=== PATIENT | female | born 2000 | race Caucasian/White ===

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

== ENCOUNTER 2022-02-05 09:03 | Emergency (ER) | payer OTHER, SELFPAY ==
[2022-02-05 09:30] VITALS: BP 129/84; PULSE 107; RESP 19; TEMP 36.9; O2SAT 99; BMI 31.6
[2022-02-05 09:52] LABS: UTC Influenza A Antigen Negative (Negative)
[2022-02-05 09:53] LABS: UTC Influenza B Antigen Negative (Negative)
--- NOTE | 2022-02-05 10:09 | HMH.EDUTC ---
[facility] [place] Clinical Impression: Viral syndrome Disposition: Home, Self-Care Condition on Discharge: Good Instructions: How to Avoid a Cold or Flu, Nausea and Vomiting-Adult, Ondansetron Additional Instructions: Drink extra fluids with and between meals. If you have difficulty drinking, try very small amounts of water or suck on ice chips. ? Avoid fruit juices, as these do not replace minerals and can actually increase diarrhea. ? Children and adults can use sports drinks to replenish electrolytes. Younger children and infants should use products formulated for children, like oral rehydration solutions. ? Eat food in small amounts and let your stomach recover. ? Get lots of rest. You may feel tired or weak. ? No greasy or fried foods for the next 24-48 hours BRAT diet Bananas Rice Apples and [place] ? Make sure to drink plenty of liquids ? Return if needed ? Straight to ER if any life threatening symptoms ? Zofran as prescribed ? Follow up with family doctor in the next 48-72 hours if no improvement or any worsening of symptoms You may check your COVID test and Upper Respiratory Panel results on the [facility] health portal if you have trouble logging on you may call for assistance Prescriptions: Ondansetron [Zofran 4mg ODT] 4 mg PO TIDP PRN #10 tab PRN Reason: Nausea Transmission Status: Pending to [facility] Referrals: Scar Gonzalez MD [Primary Care Provider] - As needed Forms: Work/School Release Time of Disposition: 10:18 Medical Decision Making - Cade Inquiry Pt receiving controlled substance: No Cade was queried for this patient: No Vital Signs: 02/05/22 09:30 Temperature 98.4 F Temperature Source Oral Pulse Rate [Left Brachial] 107 H Respiratory Rate 19 Blood Pressure [Left Arm] 129/84 Blood Pressure Mean [Left Arm] 99 Blood Pressure Source [Left Arm] Automatic Cuff Blood Pressure Position [Left Arm] Sitting 02 Sat by Pulse Oximetry 99 Oxygen Delivery Method Room Air - Lab Data Lab results reviewed: Yes: I reviewed the patient's lab results. Lab Results 02/05/22 09:42: Influenza Type A Ag Negative, Influenza Type B Ag Negative Orders (Tests/Meds): ORDERS Category Date Time Status Full Resp Panel w/COVID ([facility]) Routine Lab 02/05/22 10:14 Ordered [facility] [place] HPI - General Stated complaint: vomiting, body aches/chills, head congestion Time Seen by Provider: 02/05/22 10:10 Mode of Arrival: Ambulatory Source of Information: Patient Limitations: No Limitations Description of Symptoms (Recalled from Triage Doc. by RN): PATIENT C/O BODY ACHES, FEVER, CHILLS, VOMITING AND DIARRHEA SINCE YESTERDAY MORNING HEENT Symptoms (Recalled from RN notes): No Resp Symptoms (Recalled from RN notes): No Skin Symptoms (Recalled from RN notes): No MS Symptoms (Recalled from RN notes): No Functional Status (Recalled from RN notes): WNL - History of Present Illness Provider Complaint: Patient states that she started feeling bad yesterday with N/V/D body ache, and chills State that she slept most of the day last night and today she is still having nausea and feeling achy all over like she may have the flu - Related Data Previous Rx's Medication Instructions Recorded Ondansetron [Zofran 4mg ODT] 4 mg PO TIDP PRN #10 tab 02/05/22 Allergies Allergy/AdvReac Type Severity Reaction Status Date / Time No Known Allergies Allergy Verified 07/27/21 15:17 - Worker's Comp Is this a Worker's Comp case?: No [facility] History - Hepatitis A Screen Drug use history?: No High risk sexual behaviors?: No History of sexually transmitted infection?: No Currently employed?: No Childcare worker?: No Do you have indoor plumbing?: Yes Do you have electricity?: Yes Attestation statement:: This patient has been screened for Hepatitis A risk factors. I have reviewed the patient's past medical history: Yes 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: Denies:: Cancer, Diabetes Mellitus Type 1, Diabetes Mellitus Type
[2022-02-05 10:20] VITALS: BP 129/84; PULSE 107; RESP 19; TEMP 36.9; O2SAT 99
[2022-02-05 10:28] LABS: Adenovirus,PCR Not Detected (NotDetected); Bordetella Pertussis Not Detected (NotDetected); Chlamydophila Pneumoniae, PCR Not Detected (NotDetected); Coronavirus 19, PCR Not Detected (NotDetected); Coronavirus 229E Not Detected (NotDetected); Coronavirus NL63 Not Detected (NotDetected); Coronavirus OC43 Not Detected (NotDetected); Coronovirus HKU1,PCR Not Detected (NotDetected); Human Metapneumovirus Not Detected (NotDetected); Influenza A, PCR Not Detected (NotDetected); Influenza AH1, 2009 Not Detected (NotDetected); Influenza AH1, PCR Not Detected (NotDetected); Influenza AH3,PCR Not Detected (NotDetected); Influenza B, PCR Not Detected (NotDetected); Mycoplasma Pneumoniae, PCR Not Detected (NotDetected); Parainfluenza 1, PCR Not Detected (NotDetected); Parainfluenza 2, PCR Not Detected (NotDetected); Parainfluenza 3, PCR Not Detected (NotDetected); Parainfluenza 4, PCR Not Detected (NotDetected); Respiratory Syncytial Virus Not Detected (NotDetected); Rhinovirus/Enterovirus Not Detected (NotDetected)
== END 2022-02-05 10:24 | disposition home or self-care (01) ==
PROVIDERS: Emergency Provider Nurse Practitioner; PCP Family Medicine
DX: B34.9 Viral infection, unspecified (principal); Z20.822 Contact with and (suspected) exposure to COVID-19; F17.210 Nicotine dependence, cigarettes, uncomplicated; Z82.49 Family history of ischemic heart disease and other diseases of the circulatory system
CPT/HCPCS: 87581; 87632; 87798; 87804; 99213; C9803; G0463; U0003; U0005

== ENCOUNTER → 2022-07-10 12:14 | Outpatient (CLI) | payer OTHER, SELFPAY ==
--- NOTE | 2022-07-10 12:18 | XR_ITS ---
FINAL REPORT CLINICAL HISTORY: RT KNEE PATELLAR TENDINITIS-- no injury FINDINGS: RIGHT KNEE Three views of the right knee reveal no evidence of fracture or dislocation. The bony alignment is normal. The joint spaces are preserved. There is no evidence of joint effusion. No localized soft tissue abnormality is identified. IMPRESSION: No acute abnormality identified. Reviewed, Interpreted and Dictated by Juan Britton III, MD Transcribed by Lizabeth Marie Authenticated and [facility]
--- NOTE | 2022-07-10 12:18 | XR_ITS ---
FINAL REPORT CLINICAL HISTORY: LT KNEE PATELLAR TENDINITES -- no injury FINDINGS: LEFT KNEE Three views of the left knee reveal no evidence of fracture or dislocation. The bony alignment is normal. The joint spaces are preserved. There is no evidence of joint effusion. No localized soft tissue abnormality is seen. IMPRESSION: No acute abnormality identified. Reviewed, Interpreted and Dictated by Juan Britton III, MD Transcribed by Lizabeth Marie Authenticated and [facility]
== END ==
PROVIDERS: PCP Family Medicine; Visit Provider Physician Assistant
DX: M76.52 Patellar tendinitis, left knee (principal); M76.51 Patellar tendinitis, right knee
CPT/HCPCS: 73562

== ENCOUNTER 2022-07-26 16:30 | Outpatient (RCR) | payer OTHER, SELFPAY ==
--- NOTE | 2022-06-05 13:56 | HMH.PTOPEV ---
PT Outpatient Evaluation Rehab PT Outpatient Evaluation Start: 06/05/22 13:27 Freq: Status: Active Protocol: Document 06/05/22 13:28 LAYNE (Rec: 06/05/22 13:56 LAYNE [id number]) Electronically Signed By Bakari Kwan, PT 06/05/22 13:28 Outpatient Therapy Subjective History Subjective History Pt reports h/o chronic right knee pain for ~6 weeks. Pt reports anterior right knee pain with insidious onset, reports intermittent episodes of right knee buckling, as well as right patella 'feeling like it gets stuck, and then I've gotta unlock it'. Chief Complaint Pain,Stiff,Clicks,Swelling, Catches/Locks,Gives out/ Unstable Symptom Type Ache,Sharp,Dull Symptoms Relieved By Rest/Positioning Symptoms Aggravated By Standing,Physical Activity, Walking Prior Functional Limitations Standing,Squatting,Walking, Stairs Current Functional Limitations Standing,Squatting,Walking, Stairs Symptom Description Constant but Variable Level of pain today (0-10) 3 Pain scale - at its best (0-10) 3 Pain scale - at its worst (0-10) 7 Hip/Knee Eval Gait Observation General Gait Pattern Observation Antalgic Gait Palpation Tenderness right Knee Palpation Finding Tenderness Knee Palpation Overall Comment inferior pole patella 1/4, medial jt line 2/4, popiteal space 2/4 MMT Hip Flexion Strength Grade 4- Good- Hip Abduction Strength Grade 4- Good- Hip Adduction Strength Grade 4 Good Hip Extension Strength Grade 4 Good Hip External Rotation Strength Grade 4 Good Hip Internal Rotation Strength Grade 4- Good- Knee Extension Strength Grade 5 Normal Knee Flexion Strength Grade 4 Good ROM Knee Flexion Active Range of Motion ( 0-134 degrees) Effusion joint effusion knee exam standard right Mid - Patellar Circumerential Measure ( 40.5 cm) Special Tests Knee Anterior Kristie Test Negative Right Knee Valgus Stress Test Negative Right Knee Varus Stress Test Negative Right Knee Caro Test Negative Right Patellar Grind Test Positive Right Patellar Compression Test Positive Right Patella Houghston's Plica Test Negative Right Outpatient Therapy Assessment Impairments Problems/Impairmments Palpation Tenderness,Impaired
== END 2022-07-26 16:35 | disposition home or self-care (01) ==
LOC: PT 16:30
PROVIDERS: PCP Family Medicine; Visit Provider Physician Assistant
DX: M76.51 Patellar tendinitis, right knee (principal)
CPT/HCPCS: 97010; 97014; 97035; 97110; 97112; 97140; 97163; 97164; 97530; G0283

== ENCOUNTER → 2022-10-05 13:55 | Outpatient (CLI) | payer OTHER, SELFPAY | PROVIDERS: PCP Family Medicine; Visit Provider Physician Assistant | DX: R00.2 Palpitations (principal) | CPT/HCPCS: 93225; 93226 ==

== ENCOUNTER 2023-02-21 11:47 | Emergency (ER) | payer OTHER, SELFPAY ==
[2023-02-21 12:00] VITALS: BP 127/76; PULSE 100; RESP 20; TEMP 37.2; O2SAT 96; BMI 30.7
--- NOTE | 2023-02-21 12:11 | EXP.UTC ---
Discharge Plan Disposition Patient Disposition: Home, Self-Care Condition: Good Prescriptions Prescriptions: New ciprofloxacin HCl 0.3 % drops See Rx Instructions .ROUTE .COMPLEX Qty: 5 0RF Rx Instructions: put 1 drp in left eye every 2hr x2days; then 4 times/day x5days cephalexin 500 mg capsule 500 mg PO QID Qty: 40 0RF No Action venlafaxine [Effexor XR] 150 mg capsule,extended release 24hr 150 mg PO DAILY Vraylar 1.5 mg capsule 1.5 mg PO DAILY Referrals Follow up/Referrals: Scar Gonzalez MD [Primary Care Provider] - See instructions Activity Restrictions/Add. Instructions Additional Instructions/Restrictions: Use the eye drops as directed. Strict hand washing in the house hold, because conjunctivitis is very contagious. Follow up with your regular doctor. GO TO THE ER FOR ANY WORSENING SYMPTOMS OR CONCERNS Clinical Impressions Clinical Impression: Conjunctivitis of left eye, Hordeolum externum of left upper eyelid Stand Alone Forms Stand Alone Forms: Work/School Release Instructions Patient Instructions: How to Instill Eye Drops, Conjunctivitis, DI for Conjunctivitis, DI for Hordeolum Discharge ED Provider: Sean Barker [facility] General Stated complaint: Left eye redness and swollen Mode of Arrival: Ambulatory Source of Information: Patient Limitations: No Limitations Time Seen by Provider: 02/21/23 12:11 Description of Symptoms (Recalled from Triage Doc. by RN): swollen left eye and left side of face HEENT Symptoms (Recalled from RN notes): Yes Resp Symptoms (Recalled from RN notes): No Skin Symptoms (Recalled from RN notes): No MS Symptoms (Recalled from RN notes): No Functional Status (Recalled from RN notes): n/a History of Present Illness Provider Complaint: She states that she has had swelling around her left eye and mild puffiness of the area above that eye for the past 2 days. She denies any injury of foreign body. Related Data Home Medications Medication Instructions Recorded Confirmed cariprazine 1.5 mg capsule 1.5 mg PO DAILY anxiety 02/21/23 02/21/23 (Vraylar) venlafaxine 150 mg 150 mg PO DAILY Anxiety 02/21/23 02/21/23 capsule,extended release 24 hr (Effexor XR) Previous Rx's Medication Instructions Recorded cephalexin 500 mg capsule 500 mg PO QID #40 caps 02/21/23 ciprofloxacin HCl 0.3 % eye drops See Rx Instructions ophthalmic 02/21/23 (eye) .COMPLEX #5 mL Allergies Allergy/AdvReac Type Severity Reaction Status Date / Time No Known Allergies Allergy Verified 02/21/23 12:05 Worker's Comp Is this a Worker's Comp case?: No PFSH PFS Disclaimer: The information contained in this section may have been updated after the patient was seen, as this information can be updated by other users. 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 Generalized anxiety disorder Major depressive disorder Surgical History History of tonsillectomy Family History Mother FHx: mental illness Social History Smoking Status: Current every day smoker tobacco type: e-cigarettes quit status: considering quitting second hand exposure: No alcohol intake: never substance use type: denies use current occupational status: employed and other Travel in the last 8 weeks: None adopted: No caregiver/support person: No foster care: No household members: family housing: house marital status: single number of children: 0 education level: college 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
[2023-02-21 12:33] VITALS: BP 127/76; PULSE 100; RESP 20; TEMP 37.2; O2SAT 96
== END 2023-02-21 12:33 | disposition home or self-care (01) ==
PROVIDERS: Emergency Provider Nurse Practitioner Family; PCP Family Medicine
DX: H10.9 Unspecified conjunctivitis (principal); H00.014 Hordeolum externum left upper eyelid; F17.290 Nicotine dependence, other tobacco product, uncomplicated
CPT/HCPCS: 99212; 99214; G0463

== ENCOUNTER 2023-02-24 10:35 | Emergency (ER) | payer OTHER, SELFPAY ==
[2023-02-24 10:40] VITALS: BP 131/78; PULSE 101; RESP 19; TEMP 37.3; O2SAT 99; BMI 27.7
--- NOTE | 2023-02-24 10:57 | EXP.UTC ---
Discharge Plan Disposition Patient Disposition: Home, Self-Care Condition: Good Prescriptions Prescriptions: New erythromycin 5 mg/gram (0.5 %) ointment 0.5 inch ophthalmic (eye) QID 7 Days Qty: 7 0RF Rx Instructions: apply 1cm ribbon to left eye as directed No Action venlafaxine [Effexor XR] 150 mg capsule,extended release 24hr 150 mg PO DAILY Vraylar 1.5 mg capsule 1.5 mg PO DAILY Referrals Follow up/Referrals: Scar Gonzalez MD [Primary Care Provider] - See instructions Activity Restrictions/Add. Instructions Additional Instructions/Restrictions: Stop using the Cipro drops and start the erythromycin ointment for your left eye Follow up with your Family Doctor or Eye Doctor if no improvement or any worsening of symptom Return if needed Straight to ER if any life threatening symptoms Straight to ER if any life threatening symptoms Continue oral antibiotics as prescribed Warm compresses to eye may help with pain and discomfort Clinical Impressions Clinical Impression: Conjunctivitis of left eye Instructions Patient Instructions: Conjunctivitis, DI for Conjunctivitis Discharge ED Provider: Flor Lopez [facility] General Stated complaint: Lt eye swollen, irritated Mode of Arrival: Ambulatory Source of Information: Patient Limitations: No Limitations Time Seen by Provider: 02/24/23 10:57 Description of Symptoms (Recalled from Triage Doc. by RN): PATIENT C/O SWELLING TO LEFT EYE, LEFT EAR, AND LEFT SIDE OF FACE X 1 WEEK HEENT Symptoms (Recalled from RN notes): Yes Resp Symptoms (Recalled from RN notes): No Skin Symptoms (Recalled from RN notes): No MS Symptoms (Recalled from RN notes): No Functional Status (Recalled from RN notes): WNL History of Present Illness Provider Complaint: Patient states that she was recently seen for swelling in the left side of her face around her cheek area to above her eye but she has been on antibiotics and that is doing better States that she is still having pain in her left ear and still having redness and drainage from her left eye and thinks she may have a stye there too States that the drops she was given for eye she doesnt feel like it is working Related Data Home Medications Medication Instructions Recorded Confirmed cariprazine 1.5 mg capsule 1.5 mg PO DAILY anxiety 02/21/23 02/24/23 (Vraylar) venlafaxine 150 mg 150 mg PO DAILY Anxiety 02/21/23 02/24/23 capsule,extended release 24 hr (Effexor XR) Previous Rx's Medication Instructions Recorded erythromycin 5 mg/gram (0.5 %) eye 0.5 inch ophthalmic (eye) QID 7 02/24/23 ointment days #7 grams Allergies Allergy/AdvReac Type Severity Reaction Status Date / Time No Known Allergies Allergy Verified 02/21/23 12:05 Worker's Comp Is this a Worker's Comp case?: No [facility] Disclaimer: The information contained in this section may have been updated after the patient was seen, as this information can be updated by other users. 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 Generalized anxiety disorder Major depressive disorder Surgical History History of tonsillectomy Family History Mother FHx: mental illness Social History Smoking Status: Current every day smoker tobacco type: e-cigarettes quit status: considering quitting second hand exposure: No alcohol intake: never substance use type: denies use current occupational status: employed and other Travel in the last 8 weeks: None adopted: No caregiver/support person: No foster care: No household members: family housing: house marital status: single number of children: 0 education level: college 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
[2023-02-24 11:10] VITALS: BP 131/78; PULSE 101; RESP 19; TEMP 37.3; O2SAT 99
== END 2023-02-24 11:16 | disposition home or self-care (01) ==
PROVIDERS: Emergency Provider Nurse Practitioner; PCP Family Medicine
DX: H10.32 Unspecified acute conjunctivitis, left eye (principal); H92.02 Otalgia, left ear; F17.290 Nicotine dependence, other tobacco product, uncomplicated
CPT/HCPCS: 99212; 99214; G0463

== ENCOUNTER 2023-03-06 11:06 | Emergency (ER) | payer OTHER, SELFPAY ==
[2023-03-06 11:06] VITALS: BP 149/88; PULSE 96; RESP 18; TEMP 36.9; O2SAT 100; BMI 30.7
--- NOTE | 2023-03-06 11:21 | EXP.UTC ---
Discharge Plan Disposition Patient Disposition: Home, Self-Care Condition: Good Prescriptions Prescriptions: New phenazopyridine [Pyridium] 200 mg tablet 200 mg PO Q8H 2 Days Qty: 6 0RF sulfamethoxazole-trimethoprim [Bactrim DS] 800-160 mg Tablet 1 tab PO BID Qty: 14 0RF No Action venlafaxine [Effexor XR] 150 mg capsule,extended release 24hr 150 mg PO DAILY Vraylar 1.5 mg capsule 1.5 mg PO DAILY medroxyprogesterone 150 mg/mL suspension 150 mg IM MONTHLY Referrals Follow up/Referrals: Scar Gonzalez MD [Primary Care Provider] - See instructions Activity Restrictions/Add. Instructions Additional Instructions/Restrictions: Drink plenty of fluids. Take tylenol or ibuprofen for pain or fever. Take the medications as directed. Follow up with your regular doctor. GO TO THE ER FOR ANY WORSENING SYMPTOMS The pyridium will make your urine turn orange, this is an expected side effect. It will stain your clothes if it comes into contact with them. We will culture the urine. That will tell what bacteria is causing your infection and which antibiotics will treat it best. Sometimes the first antibiotic we prescribe turns out to not work against different bacteria. So, make sure you follow up within 3 days if you are not getting better. Clinical Impressions Clinical Impression: UTI (urinary tract infection) Stand Alone Forms Stand Alone Forms: Work/School Release Discharge ED Provider: Sean Barker [facility] General Stated complaint: Possible UTI Mode of Arrival: Ambulatory Source of Information: Patient Limitations: No Limitations Time Seen by Provider: 03/06/23 11:20 Description of Symptoms (Recalled from Triage Doc. by RN): UTI symptoms. Burning when urinating HEENT Symptoms (Recalled from RN notes): No Resp Symptoms (Recalled from RN notes): No Skin Symptoms (Recalled from RN notes): No MS Symptoms (Recalled from RN notes): Yes Functional Status (Recalled from RN notes): n/a Related Data Home Medications Medication Instructions Recorded Confirmed cariprazine 1.5 mg capsule 1.5 mg PO DAILY anxiety 02/21/23 03/06/23 (Vraylar) venlafaxine 150 mg 150 mg PO DAILY Anxiety 02/21/23 03/06/23 capsule,extended release 24 hr (Effexor XR) medroxyprogesterone 150 mg/mL 150 mg IM MONTHLY control 03/06/23 03/06/23 intramuscular suspension Previous Rx's Medication Instructions Recorded phenazopyridine 200 mg tablet 200 mg PO Q8H 2 days #6 tabs 03/06/23 (Pyridium) sulfamethoxazole 800 1 tab PO BID #14 tabs 03/06/23 mg-trimethoprim 160 mg tablet (Bactrim DS) Allergies Allergy/AdvReac Type Severity Reaction Status Date / Time No Known Allergies Allergy Verified 03/06/23 11:16 Worker's Comp Is this a Worker's Comp case?: No [facility] Disclaimer: The information contained in this section may have been updated after the patient was seen, as this information can be updated by other users. 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 Generalized anxiety disorder Major depressive disorder Surgical History History of tonsillectomy Family History Mother FHx: mental illness Social History Smoking Status: Current every day smoker tobacco type: e-cigarettes quit status: considering quitting second hand exposure: No alcohol intake: never substance use type: denies use current occupational status: employed and other Travel in the last 8 weeks: None adopted: No caregiver/support person: No foster care: No household members: family housing: house marital status: single number of children: 0 education level: college 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[employer]; in [employer]
[2023-03-06 11:27] LABS: Apearance,Urine Clear (Clear); Color,Urine Yellow (Yellow)
[2023-03-06 11:28] LABS: Bilirubin,Urine Negative (Negative); Blood, Urine 2+ (Negative); Glucose,Urine (UA) Negative (Negative); Ketones,Urine Negative (Negative); PH,Urine 6.5 (5.0-8.5); Protein,Urine Trace (Negative); UTC Leukocyte Esterase,Urine 1+ (Negative); UTC Nitrate,Urine Negative (Negative); Urobilinogen,Urine 0.2 EU/dl (0.2)
[2023-03-06 11:54] VITALS: BP 149/88; PULSE 96; RESP 18; TEMP 36.9; O2SAT 100
== END 2023-03-06 11:54 | disposition home or self-care (01) ==
PROVIDERS: Emergency Provider Nurse Practitioner Family; PCP Family Medicine
DX: N39.0 Urinary tract infection, site not specified (principal); F17.290 Nicotine dependence, other tobacco product, uncomplicated
CPT/HCPCS: 81003; 87086; 99212; 99214; G0463

== ENCOUNTER 2023-03-18 15:48 | Emergency (ER) | payer OTHER, SELFPAY ==
[2023-03-18 16:25] VITALS: BP 145/87; PULSE 101; RESP 20; TEMP 36.9; O2SAT 98; BMI 31.7
[2023-03-18 16:38] LABS: UTC Pregnancy Test, Urine Negative (Negative)
--- NOTE | 2023-03-18 16:42 | EXP.UTC ---
Discharge Plan Disposition Patient Disposition: Home, Self-Care Condition: Good Prescriptions Prescriptions: No Action venlafaxine [Effexor XR] 150 mg capsule,extended release 24hr 150 mg PO DAILY Vraylar 1.5 mg capsule 1.5 mg PO DAILY medroxyprogesterone 150 mg/mL suspension 150 mg IM MONTHLY phenazopyridine [Pyridium] 200 mg tablet 200 mg PO Q8H 2 Days Qty: 6 0RF sulfamethoxazole-trimethoprim [Bactrim DS] 800-160 mg Tablet 1 tab PO BID Qty: 14 0RF Referrals Follow up/Referrals: Scar Gonzalez MD [Primary Care Provider] - See instructions Activity Restrictions/Add. Instructions Additional Instructions/Restrictions: Take another home test in 2 weeks to make sure that it is still showing negative Follow up with your Family Doctor or OBGYN if needed Straight to ER if any life threatening symptoms Clinical Impressions Clinical Impression: Encounter for test with result negative Discharge ED Provider: Flor Lopez [facility] General Stated complaint: wants Preg Test Mode of Arrival: Ambulatory Source of Information: Patient Limitations: No Limitations Time Seen by Provider: 03/18/23 16:43 Description of Symptoms (Recalled from Triage Doc. by RN): PATIENT REQUESTING TEST. SHE REPORTS A FAINT LINE ON A HOME TEST HEENT Symptoms (Recalled from RN notes): No Resp Symptoms (Recalled from RN notes): No Skin Symptoms (Recalled from RN notes): No MS Symptoms (Recalled from RN notes): No Functional Status (Recalled from RN notes): WNL History of Present Illness Provider Complaint: Patient states that she wanted to get a test States that she is on the depo shot but she took a home test and thinks she may have seen a faint line so she took 2 more and they was negative but she wanted to come in and get one here to see what it showed Related Data Home Medications Medication Instructions Recorded Confirmed cariprazine 1.5 mg capsule 1.5 mg PO DAILY anxiety 02/21/23 03/06/23 (Vraylar) venlafaxine 150 mg 150 mg PO DAILY Anxiety 02/21/23 03/06/23 capsule,extended release 24 hr (Effexor XR) medroxyprogesterone 150 mg/mL 150 mg IM MONTHLY control 03/06/23 03/06/23 intramuscular suspension Previous Rx's Medication Instructions Recorded phenazopyridine 200 mg tablet 200 mg PO Q8H 2 days #6 tabs 03/06/23 (Pyridium) sulfamethoxazole 800 1 tab PO BID #14 tabs 03/06/23 mg-trimethoprim 160 mg tablet (Bactrim DS) Allergies Allergy/AdvReac Type Severity Reaction Status Date / Time No Known Allergies Allergy Verified 03/06/23 11:16 Worker's Comp Is this a Worker's Comp case?: No [facility] PFS Disclaimer: The information contained in this section may have been updated after the patient was seen, as this information can be updated by other users. 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 Generalized anxiety disorder Major depressive disorder Surgical History History of tonsillectomy Family History Mother FHx: mental illness Social History Smoking Status: Current every day smoker tobacco type: e-cigarettes quit status: considering quitting second hand exposure: No alcohol intake: never substance use type: denies use current occupational status: employed and other Travel in the last 8 weeks: None adopted: No caregiver/support person: No foster care: No household members: family housing: house marital status: single number of children: 0 education level: college 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
[2023-03-18 16:48] VITALS: BP 145/87; PULSE 101; RESP 20; TEMP 36.9; O2SAT 98
== END 2023-03-18 16:50 | disposition home or self-care (01) ==
PROVIDERS: Emergency Provider Nurse Practitioner; PCP Family Medicine
DX: Z32.02 Encounter for pregnancy test, result negative (principal); F17.290 Nicotine dependence, other tobacco product, uncomplicated
CPT/HCPCS: 81025; 99212; G0463

== ENCOUNTER 2023-04-15 21:20 | Emergency (ER) | payer OTHER, SELFPAY ==
[2023-04-15] VITALS (7 sets, daily range): BP systolic 122–164; BP diastolic 74–100; PULSE 108–127; RESP 18–32; TEMP 36.9; O2SAT 96–100; BMI 35.3; BMI 35.5
--- NOTE | 2023-04-15 21:20 | ECG_ITS ---
APPROVED REPORT Exam: Resting ECG HR:126 bpm ECG Measurements Heart Rate 126 AXES KS 152 P 55 QRSd 112 QRS 53 QT 298 T 20 QTc 373 Conclusion SINUS TACHYCARDIA O/w NORMAL RHYTHM ECG UNCONFIRMED REPORT Electronically signed by : Bert Tavera MD 04/18/2023 09:31:43
--- NOTE | 2023-04-15 21:22 | XR_ITS ---
PROCEDURE INFORMATION: Exam: XR Chest Exam date and time: 04/15/2023 9:41 PM Age: 22 years old Clinical indication: Sternal or substernal pain; Additional info: Chest pain, dyspnea TECHNIQUE: Imaging protocol: Radiologic exam of the chest. Views: 2 views. COMPARISON: No relevant prior studies available. FINDINGS: Lungs: Unremarkable. No consolidation. Pleural spaces: Unremarkable. No pleural effusion. No pneumothorax. Heart/Mediastinum: Unremarkable. No cardiomegaly. Bones/joints: Unremarkable. IMPRESSION: No acute findings.
[2023-04-15 21:38] LABS: Basophils # 0.1 K/mm3 (0-0.2); Basophils % 0.5 % (0.1-2.0); Eosinophils # 0.2 K/mm3 (0.0-0.4); Eosinophils % 1.6 % (0.1-12.0); Hematocrit 41.7 % (37.0-47.0); Hemoglobin 13.5 g/dL (12.2-16.2); Lymphocytes # 3.8 K/mm3 (0.7-4.5); Lymphocytes % 28.2 % (10-50); Mean Corpuscular HGB Conc 32.3 g/dL (31.8-35.4); Mean Corpuscular Hemoglobin 28.3 pg (27.0-31.2); Mean Corpuscular Volume 87.5 fl (81-99); Mean Platelet Volume 6.6 fl (7.4-10.4); Monocytes % 7.1 % (1.7-9.3); Neutrophils # 8.4 K/mm3 (1.8-7.8); Neutrophils % 62.6 % (37.0-80.0); Platelet Count 350 K/mm3 (142-424); Red Blood Count 4.76 M/mm3 (4.20-5.40); White Blood Count 13.4 K/mm3 (4.5-13.0)
[2023-04-15 21:46] LABS: Activated Partial Thrombo Time 26.9 seconds (22.8-30.6); INR 0.95 (0.9-1.1); Prothrombin Time 10.3 seconds (10.1-12.5)
--- NOTE | 2023-04-15 21:54 | CT_ITS ---
PROCEDURE INFORMATION: Exam: CTA Chest With Contrast Exam date and time: 04/15/2023 10:49 PM Age: 22 years old Clinical indication: Sternal or substernal pain; Additional info: PILO Eddy TECHNIQUE: Imaging protocol: Computed tomographic angiography of the chest with contrast. Exam focused on the arteries. 3D rendering (Not supervised by radiologist): MIP and/or 3D reconstructed images were created by the technologist. Radiation optimization: All CT scans at this facility use at least one of these dose optimization techniques: automated exposure control; mA and/or kV adjustment per patient size (includes targeted exams where dose is matched to clinical indication); or iterative reconstruction. Contrast material: ISOVUE; Contrast volume: 70 ml; Contrast route: INTRAVENOUS (IV); REPORTING DATA: Count of CT and Cardiac NM exams in prior 12 months: This patient has received 0 known CTs and 0 known cardiac nuclear medicine studies in the 12 months prior to the current study. COMPARISON: CR XR CHEST 2V 04/15/2023 9:41 PM FINDINGS: Pulmonary arteries: Normal. No pulmonary emboli. Aorta: Unremarkable. No aortic aneurysm. No aortic dissection. Lungs: Unremarkable. No consolidation. No masses. Pleural spaces: Unremarkable. No pneumothorax. No pleural effusion. Heart: Normal-size. No definite pericardial fluid Mediastinal space: There is a rim of low soft tissue density in the anterior mediastinum extending from the thoracic inlet colon and anterior to the right ventricle, measuring approximally 14 mm in greatest thickness. This appears to be mediastinal rather than pericardial in location and may represent slightly high-density fluid. Lymph nodes: Unremarkable. No enlarged lymph nodes. Bones/joints: Mild degenerative disc changes noted throughout the thoracic spine. Soft tissues: Unremarkable. IMPRESSION: Rim of slightly high density fluid or low-density soft tissue in the anterior mediastinum. Differential diagnosis would include residual thymic tissue versus early acute mediastinitis, depending on clinical presentation
--- NOTE | 2023-04-15 21:54 | HMH.EDCP ---
Discharge Plan Disposition Patient Disposition: Home, Self-Care Chief Complaint: Chest Pain Prescriptions Prescriptions: No Action venlafaxine [Effexor XR] 150 mg capsule,extended release 24hr 150 mg PO DAILY Vraylar 1.5 mg capsule 1.5 mg PO DAILY Referrals Follow up/Referrals: Jayjay Gonzalez MD [Primary Care Provider] - See instructions Caleb Martinez MD [Staff Physician] - See instructions Clinical Impressions Clinical Impression: Atypical chest pain, Intermittent palpitations Instructions Patient Instructions: DI for Atypical Chest Pain Discharge ED Provider: Janay (ED),Valente Garcia Chest Pain HPI General Chief Complaint: Chest Pain Stated Complaint: Chest Pain x3 days Time Seen by Provider: 04/15/23 21:25 Mode of Arrival: Ambulatory Source of Information: Patient and Medical Record Limitations: No Limitations Description of Symptoms (Recalled from ER Triage Doc. by RN): 22 F presents with 2-3 days with worsening chest pain, palpitations, and dyspnea. Patient states she had an episode like this a few months ago, placed on a heart monitor, and was never notified of any changes. This evening she was sitting at home when she had a sudden boom boom feeling in her chest. She reports getting up from sitting and vomited. NAD on arrival, but patient is anxious with freind at bedside. History of Present Illness HPI narrative: over the last 2-3 days with chest pain assoc with inc hr - no fever , rash or trauma - no hx of autoimmune dis MD complaint: chest pain indicative of cardiac Onset (ago): day(s) Duration: intermittent Activity at onset: during rest Pain location: substernal Severity: moderate Quality: sharp Treatments prior to or on arrival for Cardiac Chest Pain: none CESAR Score for Non-Stemi Age of Patient: <30 years old Heart Rate: 110-149 bpm Systolic Blood Pressure: 120-139 mmhg Serum Creatinine: 0.40-0.79 mg/dl CHF [place] Class: I-No CHF Other Risk Factors: None Non-Stemi Risk Score: 62 Risk Stratification: 1-108 = Low Risk Related Data Home Medications Medication Instructions Recorded Confirmed cariprazine 1.5 mg capsule 1.5 mg PO DAILY anxiety 02/21/23 04/15/23 (Vraylar) venlafaxine 150 mg 150 mg PO DAILY Anxiety 02/21/23 04/15/23 capsule,extended release 24 hr (Effexor XR) Allergies Allergy/AdvReac Type Severity Reaction Status Date / Time No Known Allergies Allergy Verified 03/06/23 11:16 [facility] Disclaimer: The information contained in this section may have been updated after the patient was seen, as this information can be updated by other users. 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 Generalized anxiety disorder Major depressive disorder Surgical History History of tonsillectomy Family History Mother FHx: mental illness Social History Smoking Status: Current every day smoker tobacco type: e-cigarettes quit status: considering quitting second hand exposure: No alcohol intake: never substance use type: denies use current occupational status: employed and other Travel in the last 8 weeks: None adopted: No caregiver/support person: No foster care: No household members: family housing: house marital status: single number of children: 0 education level: college 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
[2023-04-15 21:58] LABS: Alanine Aminotransferase 35 U/L (12-78); Albumin Level 4.3 g/dl (3.5-5.0); Albumin/Globulin Ratio 1.5 (1.1-1.8); Alkaline Phosphatase 78 U/L (38-126); Anion Gap 16.8 mEq/L (5-15); Aspartate Amino Transferase 31 U/L (14-36); Bilirubin,Total 0.3 mg/dl (0.2-1.3); Blood Urea Nitrogen 8 mg/dl (7-17); Carbon Dioxide 26 mmol/L (22.0-30.0); Chloride 103 mmol/L (98-107); Creatinine Clearance Estimated 236 mL/min (50-200); Estimated Glomerular Filt Rate 127 ml/min (>60); GFR (African American) 154 ML/MIN (>60); Globulin 2.9 g/dL (1.3-3.2); Glucose 148 mg/dl (74-100); Potassium 3.8 mmoL/L (3.5-5.1); Sodium 142 mmol/L (136-145); Total Protein,Serum 7.2 g/dl (6.3-8.2)
[2023-04-15 22:11] LABS: NT Pro Brain Natriuretic Pep. < 20.0 pg/mL (0-125)
[2023-04-15 22:16] LABS: C-Reactive Protein 4.2 mg/L (0-4)
[2023-04-15 22:21] LABS: Troponin I < 0.01 ng/ml (0.00-0.034)
--- NOTE | 2023-04-15 22:23 | PC.NURSE ---
Rounded on patient. Patient was given non-slip socks at this time.
[2023-04-15 22:30] LABS: Procalcitonin 0.055 ng/mL (0.0-2.0)
[2023-04-15 22:31] LABS: HCG Qualitative, Serum Negative (Negative)
[2023-04-15 22:35] LABS: D-Dimer 0.72 ug/mL (0.0-0.5)
[2023-04-15 22:44] LABS: Thyroid Stimulating Hormone 2.93 uIU/mL (0.465-4.68)
--- NOTE | 2023-04-15 22:45 | PC.NURSE ---
Patient to CT
[2023-04-15 22:51] LABS: T4 (Thyroxine) 8.8 ug/dl (5.53-11.0)
--- NOTE | 2023-04-15 22:52 | PC.NURSE ---
Patient back from scans. Rounded and updated patient on time frame to wait. No needs or concerns
--- NOTE | 2023-04-15 22:52 | PC.NURSE ---
pt back from CT
[2023-04-15 23:00] LABS: Erythrocyte Sedimentation Rate 5 mm/hr (0-20)
[2023-04-16] VITALS: BP 138/79; PULSE 115; RESP 29; O2SAT 98
--- NOTE | 2023-04-16 | PC.NURSE ---
Paged at this time.
[2023-04-16 00:08] VITALS: BP 138/79; PULSE 75; RESP 16; TEMP 36.8; O2SAT 98
== END 2023-04-16 00:08 | disposition home or self-care (01) ==
PROVIDERS: Emergency Provider Emergency Medicine; PCP Psychiatry & Neurology Sleep Medicine
DX: R07.89 Other chest pain (principal); R00.2 Palpitations; F41.1 Generalized anxiety disorder; F32.A Depression, unspecified; F17.290 Nicotine dependence, other tobacco product, uncomplicated
CPT/HCPCS: 71046; 71275; 80053; 83880; 84145; 84436; 84443; 84484; 84703; 85025; 85378; 85610; 85651; 85730; 86140; 93005; 96361; 96374; 99285; Q9967

== ENCOUNTER → 2023-04-16 11:47 | Outpatient (CLI) | payer OTHER, SELFPAY | PROVIDERS: PCP Family Medicine; Visit Provider Nurse Practitioner | DX: R07.89 Other chest pain (principal); R00.2 Palpitations; R00.0 Tachycardia, unspecified | CPT/HCPCS: 93306 ==

== ENCOUNTER 2023-06-07 12:50 | Emergency (ER) | payer OTHER, SELFPAY ==
[2023-06-07 12:51] VITALS: BP 146/77; PULSE 78; RESP 18; TEMP 36.4; O2SAT 99; BMI 33.9
--- NOTE | 2023-06-07 13:19 | EXP.UTC ---
Discharge Plan Disposition Patient Disposition: Home, Self-Care Condition: Good Prescriptions Prescriptions: New azithromycin [Zithromax Z-Rodger] 250 mg tablet See Rx Instructions .ROUTE .COMPLEX Qty: 6 0RF Rx Instructions: For 250 mg dose pack: take 500 mg today (day 1), then 250 mg for 4 days (days 2-5) No Action Vraylar 1.5 mg capsule 1.5 mg PO DAILY Qty: 30 1RF venlafaxine [Effexor XR] 150 mg capsule,extended release 24hr 150 mg PO DAILY Qty: 30 1RF bisoprolol fumarate 5 mg tablet 5 mg PO DAILY Qty: 90 3RF medroxyprogesterone 150 mg/mL suspension IM Referrals Follow up/Referrals: Scar Gonzalez MD [Primary Care Provider] - See instructions Clinical Impressions Clinical Impression: Acute tonsillitis Stand Alone Forms Stand Alone Forms: Work/School Release Instructions Patient Instructions: DI for Pharyngitis/Tonsillopharyngitis -- Adult Discharge ED Provider: Nohemi Shin [facility] [place] General Stated complaint: sore throat, ear pain, AVILA Time Seen by Provider: 06/07/23 13:39 History of Present Illness Provider Complaint: Sore throat, headache since last night. No fever. No vomiting or diarrhea. Onset (ago): day(s) (1) Related Data Home Medications Medication Instructions Recorded Confirmed medroxyprogesterone 150 mg/mL mg IM 04/16/23 04/18/23 intramuscular suspension Previous Rx's Medication Instructions Recorded bisoprolol fumarate 5 mg tablet 5 mg PO DAILY #90 tabs 04/18/23 cariprazine 1.5 mg capsule 1.5 mg PO DAILY anxiety #30 caps 05/22/23 (Vraylar) venlafaxine 150 mg 150 mg PO DAILY Anxiety #30 caps 05/22/23 capsule,extended release 24 hr (Effexor XR) azithromycin 250 mg tablet See Rx Instructions PO .COMPLEX #6 06/07/23 (Zithromax Z-Rodger) tabs Allergies Allergy/AdvReac Type Severity Reaction Status Date / Time No Known Allergies Allergy Verified 04/18/23 09:51 [facility] Disclaimer: The information contained in this section may have been updated after the patient was seen, as this information can be updated by other users. 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 Generalized anxiety disorder Major depressive disorder Surgical History History of tonsillectomy Family History Mother FHx: mental illness depression; anxiety; completed suicide in 2012 by hanging Social History Smoking Status: Current every day smoker tobacco type: e-cigarettes quit status: considering quitting second hand exposure: No alcohol intake: never substance use type: denies use current occupational status: employed and other Travel in the last 8 weeks: None adopted: No caregiver/support person: No foster care: No household members: family housing: house marital status: single number of children: 0 education level: college 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[employer]; 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 additional complaints except as documented Constitutional Constitutional: Reports headache(s) ENT Ears, Nose, Mouth, and Throat: Reports headache(s) and Reports sore throat Neurologic Neurologic: Reports headache(s) Physical Exam General General appearance: alert and in no apparent distress Head Head exam: atraumatic, normocephalic and normal inspection Eye Eye exam: Present normal appearance, PERRL and EOMI ENT ENT exam: Present normal exam, mucous membranes moist, TM's normal bilaterally and normal external ear exam Expanded ENT Exam Throat exam: Present tonsillar erythema, tonsillomegaly and tonsillar exudate Neck Neck exam: Present normal inspection, full ROM and trachea midline; Absent meningismus or lymphadenopathy Chest Chest inspection: Present normal inspection and symmetric
[2023-06-07 13:29] LABS: UTC Strep Screen (Rapid) Negative (Negative)
[2023-06-07 13:47] VITALS: BP 146/77; PULSE 78; RESP 18; TEMP 36.4; O2SAT 99
== END 2023-06-07 13:48 | disposition home or self-care (01) ==
PROVIDERS: Emergency Provider Physician Assistant; PCP Family Medicine
DX: J03.90 Acute tonsillitis, unspecified (principal); R51.9 Headache, unspecified; F17.290 Nicotine dependence, other tobacco product, uncomplicated; F41.1 Generalized anxiety disorder; F33.9 Major depressive disorder, recurrent, unspecified
CPT/HCPCS: 87880; 99212; 99214; G0463

== ENCOUNTER 2023-10-14 09:00 | Emergency (ER) | payer OTHER, SELFPAY ==
[2023-10-14 09:20] VITALS: BP 121/71; PULSE 92; RESP 19; TEMP 37.1; O2SAT 99; BMI 39.6
[2023-10-14 09:35] LABS: UTC Strep Screen (Rapid) Negative (Negative)
--- NOTE | 2023-10-14 09:45 | EXP.UTC ---
Discharge Plan Disposition Patient Disposition: Home, Self-Care Condition: Good Prescriptions Prescriptions: No Action bisoprolol fumarate 5 mg tablet 5 mg PO DAILY Qty: 90 3RF medroxyprogesterone 150 mg/mL suspension 150 mg IM ONCE Vraylar 1.5 mg capsule 1.5 mg PO DAILY Qty: 30 1RF venlafaxine [Effexor XR] 150 mg capsule,extended release 24hr 150 mg PO DAILY Qty: 30 1RF Referrals Follow up/Referrals: Jayjay Gonzalez MD [Primary Care Provider] - See instructions Activity Restrictions/Add. Instructions Additional Instructions/Restrictions: *Monitor Temp, Over the counter Motrin or Tylenol as directed/as needed Tylenol every 4 hours and Motrin every 6 hours (as long as your family doctor has told you that you can take it) for fever or pain. and straight to ER if unable to lower temp less than 101.0 after medication given *Warm salt water gargles may help to soothe the throat *Throat Lozenges? *Warm fluids like tea with honey may help to soothe the throat? *Sleep elevated *Humidifier/Vaporizer Your throat swab was sent for culture. Those results are typically sent to your primary care. Be sure to follow up in 2-3 days with your family doctor/primary care physician if no improvement so they can review those result and treat if necessary. If you don?t have a primary care doctor, I recommend you get one but in the mean time, you will have to return to a walk in clinic Follow up IMMEDIATELY for new or worsening symptoms or no Noticeable improvement over the next 48-72 hours. 911 for difficulty breathing or swallowing Clinical Impressions Clinical Impression: Sinusitis Instructions Patient Instructions: DI for Sinusitis, Sinusitis Discharge ED Provider: Flor Lopez [facility] General Stated complaint: sore throat, ear pain, dizzy Mode of Arrival: Ambulatory Source of Information: Patient Limitations: No Limitations Time Seen by Provider: 10/14/23 09:45 Description of Symptoms (Recalled from Triage Doc. by RN): PATIENT C/O SORE THROAT, BILATERAL EAR FULLNESS, AND SINUS PRESSURE X 4 DAYS HEENT Symptoms (Recalled from RN notes): Yes Resp Symptoms (Recalled from RN notes): No Skin Symptoms (Recalled from RN notes): No MS Symptoms (Recalled from RN notes): No Functional Status (Recalled from RN notes): WNL History of Present Illness Provider Complaint: Patient states that she has been sick about a week States that she has been having sinus pain and pressure, pressure in both ears that makes her feel dizzy at times, scratchy throat and sinus headache States that today she wasnt feeling any better so she came in worried that she may have strep throat or something Related Data Home Medications Medication Instructions Recorded Confirmed medroxyprogesterone 150 mg/mL 150 mg IM ONCE 04/16/23 10/14/23 intramuscular suspension Previous Rx's Medication Instructions Recorded bisoprolol fumarate 5 mg tablet 5 mg PO DAILY #90 tabs 04/18/23 cariprazine 1.5 mg capsule 1.5 mg PO DAILY anxiety #30 caps 07/24/23 (Vraylar) venlafaxine 150 mg 150 mg PO DAILY Anxiety #30 caps 07/24/23 capsule,extended release 24 hr (Effexor XR) Allergies Allergy/AdvReac Type Severity Reaction Status Date / Time No Known Allergies Allergy Verified 07/24/23 09:00 Worker's Comp Is this a Worker's Comp case?: No [facility] Disclaimer: The information contained in this section may have been updated after the patient was seen, as this information can be updated by other users. 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 Generalized anxiety disorder Major depressive disorder Surgical History History of tonsillectomy Family History Mother FHx: mental illness depression; anxiety; completed suicide in 2011 by hanging Social Hi
[2023-10-14 10:01] VITALS: BP 121/71; PULSE 90; RESP 18; TEMP 37.1; O2SAT 99
== END 2023-10-14 10:02 | disposition home or self-care (01) ==
PROVIDERS: Emergency Provider Nurse Practitioner; PCP Psychiatry & Neurology Sleep Medicine
DX: J01.90 Acute sinusitis, unspecified (principal); R51.9 Headache, unspecified; H92.03 Otalgia, bilateral; R42 Dizziness and giddiness; R07.0 Pain in throat; R09.81 Nasal congestion; F17.290 Nicotine dependence, other tobacco product, uncomplicated
CPT/HCPCS: 87880; 99212; 99214; G0463

== ENCOUNTER 2023-11-15 10:11 | Emergency (ER) | payer OTHER, SELFPAY ==
[2023-11-15 10:20] VITALS: BP 120/72; PULSE 81; RESP 20; TEMP 37.1; O2SAT 97; BMI 39.1
--- NOTE | 2023-11-15 10:22 | ED_ITS ---
Discharge Plan Disposition Patient Disposition: Home, Self-Care Condition: Good Prescriptions Prescriptions: New ondansetron 4 mg Tablet,Disintegrating 4 mg PO Q8H PRN (Reason: Nausea) Qty: 12 0RF No Action bisoprolol fumarate 5 mg tablet 5 mg PO DAILY Qty: 90 3RF medroxyprogesterone 150 mg/mL suspension 150 mg IM ONCE venlafaxine 150 mg capsule,extended release 24hr 150 mg PO DAILY Rx Instructions: TAKE 1 CAPSULE BY MOUTH DAILY FOR ANXIETY Vraylar 1.5 mg capsule 1.5 mg PO DAILY Rx Instructions: TAKE 1 CAPSULE BY MOUTH DAILY FOR ANXIETY Referrals Follow up/Referrals: Scar Gonzalez MD [Primary Care Provider] - See instructions Activity Restrictions/Add. Instructions Additional Instructions/Restrictions: Drink plenty of fluids. Take tylenol for pain or fever. Take the medications as directed. Follow up with your regular doctor. GO TO THE ER FOR ANY WORSENING SYMPTOMS Clinical Impressions Clinical Impression: Gastroenteritis Stand Alone Forms Stand Alone Forms: Work/School Release Instructions Patient Instructions: Viral Gastroenteritis, DI for Viral Gastroenteritis -- Adult, Ondansetron Discharge ED Provider: Sean Barker [facility] [place] General Stated complaint: diarrhea and nausea Time Seen by Provider: 11/15/23 10:22 History of Present Illness Provider Complaint: She states that for the past 2 days she has had nausea/vomiting/diarrhea. She denies abdominal pain. Related Data Home Medications Medication Instructions Recorded Confirmed medroxyprogesterone 150 mg/mL 150 mg IM ONCE 04/16/23 11/15/23 intramuscular suspension cariprazine 1.5 mg capsule 1.5 mg PO DAILY 11/15/23 11/15/23 (Vraylar) venlafaxine 150 mg 150 mg PO DAILY 11/15/23 11/15/23 capsule,extended release 24 hr Previous Rx's Medication Instructions Recorded bisoprolol fumarate 5 mg tablet 5 mg PO DAILY #90 tabs 10/21/23 ondansetron 4 mg disintegrating 4 mg PO Q8H PRN Nausea #12 tabs 11/15/23 tablet Allergies Allergy/AdvReac Type Severity Reaction Status Date / Time No Known Allergies Allergy Verified 10/21/23 10:14 [facility] Disclaimer: The information contained in this section may have been updated after the patient was seen, as this information can be updated by other users. 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 Generalized anxiety disorder Major depressive disorder Surgical History History of tonsillectomy Family History Mother FHx: mental illness depression; anxiety; completed suicide in 2011 by hanging Social History Smoking Status: Current every day smoker tobacco type: e-cigarettes quit status: considering quitting second hand exposure: No alcohol intake: never substance use type: denies use current occupational status: employed and other Travel in the last 8 weeks: None adopted: No caregiver/support person: No foster care: No household members: family housing: house marital status: single number of children: 0 education level: college 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[employer]; 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 additional complaints except as documented Constitutional Constitutional: Denies chills, Denies fever(s) and Reports poor appetite ENT Ears, Nose, Mouth, and Throat: Denies dizziness and Denies sore throat Cardiovascular Cardiovascular: Denies dyspnea Respiratory Respiratory: Denies chest congestion, Denies cough and Denies dyspnea Gastrointestinal Gastrointestingal: Reports as per HPI; Denies abdominal pain Genitourinary Female Genitourinary: Denies difficulty voiding, Denies dysuria, Denies hematuria, Denies urinary frequency, Denies urinary incontinence, Denies urinary hesitancy and Denies urinary urgency Musculoskeletal Musculoskeletal: Denies arthralgias Integumentary/Breasts Skin/Breast: Denies rash Neurologic Neurologic: Denies dizziness Physical Exam General General appearance: alert and in no apparent distress Head Head exam: atraumatic and normocephalic Eye Eye exam: Present normal appearance, PERRL and EOMI ENT ENT exam: Present normal exam, normal oropharynx, mucous membranes moist, TM's normal bilaterally and normal external ear exam Neck Neck exam: Present normal inspection, full ROM and trachea midline; Absent tenderness, meningismus or lymphadenopathy Chest Chest inspection: Present normal inspection and symmetric chest wall rise; Absent tenderness, rash or abscess Respiratory Respiratory exam: Present normal lung sounds bilaterally; Absent respiratory distress, wheezes or stridor Cardiovascular Cardiovascular exam: Present regular rate and normal rhythm; Absent irregular rhythm, systolic murmur, diastolic murmur or JVD Abdominal Exam Abdominal exam: Present soft and hyperactive bowel sounds; Absent distention, tenderness, guarding, rebound, rigidity, psoas sign, obturator sign, heel tap sign, Geiger's sign, Rovsing's sign or tenderness at McBurney's Point Extremities Exam Extremities exam: Present normal inspection and full ROM; Absent tenderness Back Exam Back exam: Present normal inspection and full ROM; Absent tenderness, CVA tenderness (R) or CVA tenderness (L) Neurological Exam Neurological exam: Present alert, oriented X3 and CN II-XII intact Psychiatric Psychiatric exam: Present normal affect and normal mood Skin Skin exam: Present warm, dry, intact and normal color Lymphatic Lymphatic Findings: no adenopathy Medical Decision Making Medical Records Medical records reviewed: No I reviewed the patient's medical records. Cade Inquiry Pt receiving controlled substance: No
[2023-11-15 10:49] VITALS: BP 120/72; PULSE 81; RESP 20; TEMP 37.1; O2SAT 97
== END 2023-11-15 11:23 | disposition home or self-care (01) ==
PROVIDERS: Emergency Provider Nurse Practitioner Family; PCP Family Medicine
DX: A08.4 Viral intestinal infection, unspecified (principal); R11.2 Nausea with vomiting, unspecified; R19.7 Diarrhea, unspecified; B34.9 Viral infection, unspecified; F17.290 Nicotine dependence, other tobacco product, uncomplicated
CPT/HCPCS: 99212; 99214; G0463

== ENCOUNTER 2023-11-17 10:41 | Emergency (ER) | payer OTHER, SELFPAY ==
[2023-11-17 11:35] VITALS: BP 121/76; PULSE 87; RESP 20; TEMP 36.7; O2SAT 95; BMI 39.1
--- NOTE | 2023-11-17 11:51 | ED_ITS ---
Discharge Plan Disposition Patient Disposition: Home, Self-Care Condition: Good Prescriptions Prescriptions: No Action bisoprolol fumarate 5 mg tablet 5 mg PO DAILY Qty: 90 3RF medroxyprogesterone 150 mg/mL suspension 150 mg IM ONCE venlafaxine 150 mg capsule,extended release 24hr 150 mg PO DAILY Rx Instructions: TAKE 1 CAPSULE BY MOUTH DAILY FOR ANXIETY Vraylar 1.5 mg capsule 1.5 mg PO DAILY Rx Instructions: TAKE 1 CAPSULE BY MOUTH DAILY FOR ANXIETY Referrals Follow up/Referrals: Scar Gonzalez MD [Primary Care Provider] - See instructions Activity Restrictions/Add. Instructions Additional Instructions/Restrictions: Follow up iwth your OBGYN or Family Doctor to get your test results in the next 5-7 days No sexual activity until your results are back and negative Follow up with OBGYN Clinical Impressions Clinical Impression: Exposure to STD Instructions Patient Instructions: Gonorrhea, DI for Gonorrhea Discharge ED Provider: Flor Lopez [facility] [place] HPI General Stated complaint: STD panel Mode of Arrival: Ambulatory Source of Information: Patient Limitations: No Limitations Time Seen by Provider: 11/17/23 11:51 Description of Symptoms (Recalled from Triage Doc. by RN): PATIENT REQUESTING STD TESTING. SHE REPORTS BEING EXPOSED TO GONORRHEA 2 DAYS AGO. DENIES ANY SYMPTOMS AT THIS TIME HEENT Symptoms (Recalled from RN notes): No Resp Symptoms (Recalled from RN notes): No Skin Symptoms (Recalled from RN notes): No MS Symptoms (Recalled from RN notes): No Functional Status (Recalled from RN notes): WNL History of Present Illness Provider Complaint: Patient requesting STD testing States that she slept with someone unprotected and found out a couple days ago that he tested positive for Gonorrhea States that she came in today wanting to get tested and treated if she could Related Data Home Medications Medication Instructions Recorded Confirmed medroxyprogesterone 150 mg/mL 150 mg IM ONCE 04/16/23 11/17/23 intramuscular suspension cariprazine 1.5 mg capsule 1.5 mg PO DAILY 11/15/23 11/17/23 (Vraylar) venlafaxine 150 mg 150 mg PO DAILY 11/15/23 11/17/23 capsule,extended release 24 hr Previous Rx's Medication Instructions Recorded bisoprolol fumarate 5 mg tablet 5 mg PO DAILY #90 tabs 10/21/23 Allergies Allergy/AdvReac Type Severity Reaction Status Date / Time No Known Allergies Allergy Verified 10/21/23 10:14 Worker's Comp Is this a Worker's Comp case?: No [facility] Disclaimer: The information contained in this section may have been updated after the patient was seen, as this information can be updated by other users. 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 Generalized anxiety disorder Major depressive disorder Surgical History History of tonsillectomy Family History Mother FHx: mental illness depression; anxiety; completed suicide in 2011 by hanging Social History Smoking Status: Current every day smoker tobacco type: e-cigarettes quit status: considering quitting second hand exposure: No alcohol intake: never substance use type: denies use current occupational status: employed and other Travel in the last 8 weeks: None adopted: No caregiver/support person: No foster care: No household members: family housing: house marital status: single number of children: 0 education level: college 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[employer]; 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nstitutional Constitutional: Reports system reviewed and no additional complaints, except as documented and Reports as per HPI ENT Ears, Nose, Mouth, and Throat: Reports system reviewed and no additional complaints, except as documented and Reports as per HPI Cardiovascular Cardiovascular: Reports system reviewed and no additional complaints, except as documented and Reports as per HPI Respiratory Respiratory: Reports system reviewed and no additional complaints, except as documented and Reports as per HPI Gastrointestinal Gastrointestingal: Reports system reviewed and no additional complaints, except as documented and as per HPI Genitourinary Female Genitourinary: Reports system reviewed and no additional complaints, except as documented, Reports as per HPI and Reports other Comments: Exposure to Gonorrhea no symptoms at this time Physical Exam General General appearance: alert and in no apparent distress ENT ENT exam: Present mucous membranes moist Respiratory Respiratory exam: Present normal lung sounds bilaterally; Absent respiratory distress or wheezes Cardiovascular Cardiovascular exam: Present regular rate, normal rhythm and normal heart sounds Abdominal Exam Abdominal exam: Present soft and normal bowel sounds; Absent distention or tenderness Neurological Exam Neurological exam: Present alert, oriented X3 and normal gait Medical Decision Making Cade Inquiry Pt receiving controlled substance: No Cade was queried for this patient: No Vital Signs: 11/17/23 11:35 Temperature 98.0 F Temperature Source Oral Pulse Rate [Left Brachial] 87 Respiratory Rate 20 Blood Pressure [Left Arm] 121/76 Blood Pressure Mean [Left Arm] 91 Blood Pressure Source [Left Arm] Automatic Cuff Blood Pressure Position [Left Arm] Sitting 02 Sat by Pulse Oximetry 95 Oxygen Delivery Method Room Air Orders (Tests/Meds): ORDERS Category Date Time Status Urinalysis and Microscopic Stat Lab 11/17/23 11:36 Ordered
[2023-11-17] MEDS: cefTRIAXone 500MG VIAL 500 MG IM (12:07)
[2023-11-17] MEDS: LIDOCAINE 1% 5ML PF VIAL IM (12:07)
[2023-11-17 12:17] VITALS: BP 121/76; PULSE 87; RESP 20; TEMP 36.7; O2SAT 95
[2023-11-17 14:24] LABS: Microscopic, Urine URINE MICROSCOPIC (MICROSCOPIC)
[2023-11-17 14:40] LABS: Appearance,Urine CLEAR (Clear); Bilirubin,Urine Negative (Negative); Blood, Urine TRACE-I (Negative); Color,Urine YELLOW (Yellow); Glucose,Urine (UA) Negative (Negative); Ketones,Urine Negative (Negative); Leukocyte Esterase,Urine 3+ (Negative); Nitrate,Urine Negative (Negative); PH,Urine 6.5 (5.0-8.5); Protein,Urine Negative (Negative); Specific Gravity, Urine 1.025 (1.005-1.030); Urobilinogen,Urine 0.2 EU/dl (0.2)
[2023-11-17 14:53] LABS: Bacteria,Urine 1+ /lpf; RBC,Urine Occasional #/hpf (0-3); Squamous Epithelial Cell,Urine Occasional #/hpf (0-5); WBC,Urine TNTC #/hpf (0-3)
[2023-11-19 22:10] LABS: Neisseria gonorrhoeae, NAA Negative (Negative)
== END 2023-11-17 12:22 | disposition home or self-care (01) ==
PROVIDERS: Emergency Provider Nurse Practitioner; PCP Family Medicine
DX: B96.29 Other Escherichia coli [E. coli] as the cause of diseases classified elsewhere (principal); F17.290 Nicotine dependence, other tobacco product, uncomplicated; Z20.2 Contact with and (suspected) exposure to infections with a predominantly sexual mode of transmission
CPT/HCPCS: 81001; 87086; 87491; 87591; 96372; 99212; 99213; G0463; J0696

== ENCOUNTER 2023-11-22 11:16 | Emergency (ER) | payer OTHER, SELFPAY ==
[2023-11-22 11:25] VITALS: BP 159/78; PULSE 73; RESP 19; TEMP 36.6; O2SAT 99; BMI 39.1
--- NOTE | 2023-11-22 11:27 | EXP.UTC ---
Discharge Plan Disposition Patient Disposition: Home, Self-Care Condition: Good Prescriptions Prescriptions: New ibuprofen [ibuprofen] 600 mg tablet 600 mg PO Q6HP PRN (Reason: Mild Pain) Qty: 30 0RF No Action bisoprolol fumarate 5 mg tablet 5 mg PO DAILY Qty: 90 3RF medroxyprogesterone 150 mg/mL suspension 150 mg IM ONCE venlafaxine 150 mg capsule,extended release 24hr 150 mg PO DAILY Rx Instructions: TAKE 1 CAPSULE BY MOUTH DAILY FOR ANXIETY Vraylar 1.5 mg capsule 1.5 mg PO DAILY Rx Instructions: TAKE 1 CAPSULE BY MOUTH DAILY FOR ANXIETY Referrals Follow up/Referrals: Scar Gonzalez MD [Primary Care Provider] - See instructions Candi Grijalva DPM [Staff Physician] - See instructions Activity Restrictions/Add. Instructions Additional Instructions/Restrictions: Rest the extremity, apply ice for 15 minutes as tolerated three or four times per day, Elevate the extremity as tolerated while you are resting. Take ibuprofen for pain. I sent in a prescription to your pharmacy. Follow up with Dr. Grijalva (podiatry). I put in a referral but you need to call her office and schedule an appointment. Follow up with your regular doctor. GO TO THE ER FOR ANY WORSENING SYMPTOMS Clinical Impressions Clinical Impression: Sprain of foot, right, Right ankle sprain Stand Alone Forms Stand Alone Forms: Work/School Release Instructions Patient Instructions: How to Use Crutches, DI for Ankle Sprain, DI for Foot Sprain Discharge ED Provider: Sean Barker [facility] General Stated complaint: [id number] right foot injury Time Seen by Provider: 11/22/23 11:27 History of Present Illness Provider Complaint: She states that, 1 day ago, she was walking when she accidentally bumped her right foot into a concrete statue. Since then she has had had right foot and ankle pain. She denies any other injury. Related Data Home Medications Medication Instructions Recorded Confirmed medroxyprogesterone 150 mg/mL 150 mg IM ONCE 04/16/23 11/22/23 intramuscular suspension cariprazine 1.5 mg capsule 1.5 mg PO DAILY 11/15/23 11/22/23 (Vraylar) venlafaxine 150 mg 150 mg PO DAILY 11/15/23 11/22/23 capsule,extended release 24 hr Previous Rx's Medication Instructions Recorded bisoprolol fumarate 5 mg tablet 5 mg PO DAILY #90 tabs 10/21/23 ibuprofen 600 mg tablet 600 mg PO Q6HP PRN Mild Pain #30 11/22/23 tabs Allergies Allergy/AdvReac Type Severity Reaction Status Date / Time No Known Allergies Allergy Verified 10/21/23 10:14 [facility] Disclaimer: The information contained in this section may have been updated after the patient was seen, as this information can be updated by other users. 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 Generalized anxiety disorder Major depressive disorder Surgical History History of tonsillectomy Family History Mother FHx: mental illness depression; anxiety; completed suicide in 2011 by hanging Social History Smoking Status: Current every day smoker tobacco type: e-cigarettes quit status: considering quitting second hand exposure: No alcohol intake: never substance use type: denies use current occupational status: employed and other Travel in the last 8 weeks: None adopted: No caregiver/support person: No foster care: No household members: family housing: house marital status: single number of children: 0 education level: college 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[employer]; 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 additional complaints except as documented Constitutional Constitutional: Denies chills and Denies fever(s) Eyes Eyes: Denies eye discharge ENT Ears, Nose, Mouth, and Throat: Denies dizziness, Denies otalgia and Denies sore throat Cardiovascular Cardiovascular: Denies chest pain Respiratory Respiratory: Denies shortness of breath, Denies chest congestion, Denies cough, Denies stridor and Denies wheezing Gastrointestinal Gastrointestingal: Denies nausea or vomiting Musculoskeletal Musculoskeletal: Reports as per HPI Integumentary/Breasts Skin/Breast: Denies rash Neurologic Neurologic: Denies dizziness and Denies paresthesias Allergic/Immunologic Allergic/Immunologic: Denies wheezing Physical Exam General General appearance: alert and in no apparent distress Head Head exam: atraumatic, normocephalic and normal inspection Eye Eye exam: Present normal appearance, PERRL and EOMI ENT ENT exam: Present normal exam, normal oropharynx, mucous membranes moist, TM's normal bilaterally and normal external ear exam Neck Neck exam: Present normal inspection, full ROM and trachea midline; Absent meningismus or lymphadenopathy Chest Chest inspection: Present normal inspection and symmetric chest wall rise; Absent tenderness Respiratory Respiratory exam: Present normal lung sounds bilaterally; Absent respiratory distress Cardiovascular Cardiovascular exam: Present regular rate and normal rhythm; Absent JVD Abdominal Exam Abdominal exam: Present soft and normal bowel sounds; Absent distention, tenderness or guarding Extremities Exam Extremities exam: Present normal capillary refill; Absent calf tenderness Expanded Lower Extremity Exam Right: Knee exam: Present normal inspection, full ROM and knee extension intact; Absent tenderness Lower leg exam: Present normal inspection and full ROM; Absent tenderness Ankle exam: Present tenderness and swelling; Absent full ROM, abrasion, laceration, ecchymosis, deformity, crepitus, dislocation, erythema, tenderness over talofibular lig or anterior draw sign Foot/toe exam: Present tenderness and swelling; Absent full ROM, abrasion, laceration, ecchymosis, deformity, crepitus, dislocation, erythema, amputation, puncture wound, foreign body, calcaneal tenderness, tenderness at base of 5th metatarsal, nail avulsion or subungual hematoma Neurovascular/Tendon exam: Present normal capillary refill; Absent pulse deficit, motor deficit, sensory deficit, tendon deficit or extremity cold to touch Gait: observed and limited by pain Back Exam Back exam: Present normal inspection; Absent tenderness Neurological Exam Neurological exam: Present alert and oriented X3 Psychiatric Psychiatric exam: Present normal affect and normal mood Skin Skin exam: Present warm, dry, intact and normal color Lymphatic Lymphatic Findings: no adenopathy Medical Decision Making Medical Records Medical records reviewed: No I reviewed the patient's medical records. Cade Inquiry Pt receiving controlled substance: No Radiology Data #1: Image(s): Ankle Image Reviewed: Yes I reviewed the patient's radiology image and Yes I have reviewed radiologist's interpretation Preliminary Findings: No Fracture Seen FINAL REPORT CLINICAL HISTORY: hit foot and ankle on concrete COMPARISON: 05/15/2017 FINDINGS: Right ankle Three views were obtained. There is no acute fracture or dislocation. The joint spaces appear normal. No soft tissue abnormality is identified. IMPRESSION: No acute process. Reviewed, Interpreted and Dictated by Juan Britton III, MD Transcribed by Sarah Murillo Authenticated and [facility] #2: Image(s): Foot/Toes Image Reviewed: Yes I reviewed the patient's radiology image and Yes I have reviewed radiologist's interpretation Preliminary Findings: No Fracture Seen FINAL REPORT CLINICAL HISTORY: KICKED CONCRETE STATUE FINDINGS: Right foot Three views were obtained. There is no acute fracture or dislocation. The joint spaces appear normal. No soft tissue abnormality is identified. IMPRESSION: No acute process. Reviewed, Interpreted and Dictated by Juan Britton III, MD Transcribed by Sarah Murillo Authenticated and [facility] Procedures Risk/Benefits of Procedure(s) Were Explained: Yes Orthopedic Splinting/Casting Injury #1: Side: right Lower Extremity Injury Location: ankle and foot Lower Extremity Immobilizer: Jhonathan wrap and applied by nurse/dr cortes Other Orthopedic Equipment: crutches Post Cast/Splinting Neuro Status: intact and no change Post Cast/Splinting Vasc Status: intact and no change
--- NOTE | 2023-11-22 11:45 | XR_ITS ---
FINAL REPORT CLINICAL HISTORY: KICKED CONCRETE STATUE FINDINGS: Right foot Three views were obtained. There is no acute fracture or dislocation. The joint spaces appear normal. No soft tissue abnormality is identified. IMPRESSION: No acute process. Reviewed, Interpreted and Dictated by Juan Britton III, MD Transcribed by Sarah Murillo Authenticated and [facility]
--- NOTE | 2023-11-22 11:49 | XR_ITS ---
FINAL REPORT CLINICAL HISTORY: hit foot and ankle on concrete COMPARISON: 05/15/2017 FINDINGS: Right ankle Three views were obtained. There is no acute fracture or dislocation. The joint spaces appear normal. No soft tissue abnormality is identified. IMPRESSION: No acute process. Reviewed, Interpreted and Dictated by Juan Britton III, MD Transcribed by Sarah Murillo Authenticated and [facility]
[2023-11-22 11:50] VITALS: BP 159/78; PULSE 73; RESP 19; TEMP 36.6; O2SAT 99
== END 2023-11-22 12:43 | disposition home or self-care (01) ==
PROVIDERS: Emergency Provider Nurse Practitioner Family; PCP Family Medicine
DX: S93.601A Unspecified sprain of right foot, initial encounter (principal); S93.401A Sprain of unspecified ligament of right ankle, initial encounter; F17.290 Nicotine dependence, other tobacco product, uncomplicated; W22.8XXA Striking against or struck by other objects, initial encounter
CPT/HCPCS: 73610; 73630; 99212; 99214; G0463

== ENCOUNTER 2024-03-01 18:19 | Emergency (ER) | payer OTHER, SELFPAY ==
[2024-03-01 18:25] VITALS: BP 130/85; PULSE 90; RESP 18; TEMP 36.8; O2SAT 97; BMI 35.2
--- NOTE | 2024-03-01 18:33 | ED_ITS ---
Discharge Plan Disposition Patient Disposition: Home, Self-Care Condition: Good Prescriptions Prescriptions: New polymyxin B sulf-trimethoprim 10,000 unit- 1 mg/mL drops 1 drp Eye-Left Q3H 7 Days Qty: 10 0RF Rx Instructions: while awake; do not exceed 6 doses in 24 hours No Action bisoprolol fumarate 5 mg tablet 5 mg PO DAILY Qty: 90 3RF amoxicillin 875 mg tablet 875 mg PO Q12H Qty: 20 0RF ciprofloxacin HCl 0.3 % drops See Rx Instructions .ROUTE .COMPLEX Qty: 5 0RF Rx Instructions: put 1 drp in left eye every 2hr x2days; then 4 times/day x5days prednisone 10 mg tablet 10 mg PO BID 3 Days Qty: 6 0RF venlafaxine 150 mg capsule,extended release 24hr 150 mg PO DAILY Rx Instructions: TAKE 1 CAPSULE BY MOUTH DAILY FOR ANXIETY Vraylar 1.5 mg capsule 1.5 mg PO DAILY Rx Instructions: TAKE 1 CAPSULE BY MOUTH DAILY FOR ANXIETY Referrals Follow up/Referrals: Jayjay Gonzalez MD [Primary Care Provider] - See instructions Activity Restrictions/Add. Instructions Additional Instructions/Restrictions: Use the eye drops as directed. Strict hand washing in the house hold, because conjunctivitis is very contagious. Follow up with your regular doctor. GO TO THE ER FOR ANY WORSENING SYMPTOMS OR CONCERNS Clinical Impressions Clinical Impression: Conjunctivitis of left eye Stand Alone Forms Stand Alone Forms: Work/School Release Instructions Patient Instructions: How to Instill Eye Drops, Conjunctivitis, DI for Conjunctivitis Discharge ED Provider: Sean Barker [facility] General Stated complaint: left eye pain and swelling Time Seen by Provider: 03/01/24 18:29 History of Present Illness Provider Complaint: She states that for the past 2 days that she has had left eye irritation, redness with yellowish discharge. She denies any injury or foreign body. She denies any vision change. Related Data Home Medications Medication Instructions Recorded Confirmed cariprazine 1.5 mg capsule 1.5 mg PO DAILY 11/15/23 03/05/24 (Vraylar) venlafaxine 150 mg 150 mg PO DAILY 11/15/23 03/05/24 capsule,extended release 24 hr Previous Rx's Medication Instructions Recorded bisoprolol fumarate 5 mg tablet 5 mg PO DAILY #90 tabs 10/21/23 polymyxin B sulfate 10,000 1 drp Eye-Left Q3H 7 days #10 mL 03/01/24 unit-trimethoprim 1 mg/mL eye drops amoxicillin 875 mg tablet 875 mg PO Q12H #20 tabs 03/05/24 ciprofloxacin HCl 0.3 % eye drops See Rx Instructions ophthalmic 03/05/24 (eye) .COMPLEX #5 mL prednisone 10 mg tablet 10 mg PO BID 3 days #6 tabs 03/05/24 Allergies Allergy/AdvReac Type Severity Reaction Status Date / Time No Known Allergies Allergy Verified 03/05/24 10:14 [facility] Disclaimer: The information contained in this section may have been updated after the patient was seen, as this information can be updated by other users. 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 Generalized anxiety disorder Major depressive disorder Surgical History History of tonsillectomy Family History Mother FHx: mental illness depression; anxiety; completed suicide in 2011 by hanging Social History Smoking Status: Current every day smoker tobacco type: e-cigarettes quit status: considering quitting second hand exposure: No alcohol intake: never substance use type: denies use current occupational status: employed and other Travel in the last 8 weeks: None adopted: No caregiver/support person: No foster care: No household members: family housing: house marital status: single number of children: 0 education level: college 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[employer]; 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 additional complaints except as documented Constitutional Constitutional: Denies chills and Denies fever(s) Eyes Eyes: Reports as per HPI, Denies blurry vision, Denies change in vision, Reports eye discharge and Reports irritation ENT Ears, Nose, Mouth, and Throat: Denies dizziness, Denies otalgia, Reports nasal congestion, Reports sinus pressure and Reports sore throat Cardiovascular Cardiovascular: Denies chest pain Respiratory Respiratory: Denies shortness of breath, Denies chest congestion, Denies cough, Denies stridor and Denies wheezing Gastrointestinal Gastrointestingal: Denies nausea or vomiting Musculoskeletal Musculoskeletal: Reports system reviewed and no additional complaints, except as documented and Denies arthralgias Integumentary/Breasts Skin/Breast: Denies rash Neurologic Neurologic: Denies dizziness and Denies paresthesias Allergic/Immunologic Allergic/Immunologic: Denies wheezing Physical Exam General General appearance: alert and in no apparent distress Head Head exam: atraumatic, normocephalic and normal inspection Eye Eye exam: Present PERRL and EOMI Expanded Eye Exam Eyelids: left: erythema and right: normal inspection Pupils: Left: size (2), Right: size (2) and Bilateral: regular, round and reactive Sclera/Conjunctival: left: injection and exudate and right: normal inspection ENT ENT exam: Present normal exam, normal oropharynx, mucous membranes moist, TM's n ormal bilaterally and normal external ear exam Expanded ENT Exam Nose exam: Absent sinus tenderness Nasal speculum exam: Bilateral: normal Neck Neck exam: Present normal inspection, full ROM and trachea midline; Absent meningismus or lymphadenopathy Chest Chest inspection: Present normal inspection and symmetric chest wall rise; Absent tenderness Respiratory Respiratory exam: Present normal lung sounds bilaterally; Absent respiratory distress Cardiovascular Cardiovascular exam: Present regular rate and normal rhythm; Absent JVD Abdominal Exam Abdominal exam: Present soft and normal bowel sounds; Absent distention, tenderness or guarding Extremities Exam Extremities exam: Present normal inspection, full ROM and normal capillary refill; Absent calf tenderness Back Exam Back exam: Present normal inspection; Absent tenderness Neurological Exam Neurological exam: Present alert and oriented X3 Psychiatric Psychiatric exam: Present normal affect and normal mood Skin Skin exam: Present warm, dry, intact and normal color Lymphatic Lymphatic Findings: no adenopathy Medical Decision Making Medical Records Medical records reviewed: No I reviewed the patient's medical records. Cade Inquiry Pt receiving controlled substance: No
[2024-03-01 18:59] VITALS: BP 130/85; PULSE 90; RESP 18; TEMP 36.8; O2SAT 97
== END 2024-03-01 18:59 | disposition home or self-care (01) ==
PROVIDERS: Emergency Provider Nurse Practitioner Family; PCP Psychiatry & Neurology Sleep Medicine
DX: H10.32 Unspecified acute conjunctivitis, left eye (principal); H53.142 Visual discomfort, left eye; F17.210 Nicotine dependence, cigarettes, uncomplicated; F41.1 Generalized anxiety disorder; F33.9 Major depressive disorder, recurrent, unspecified
CPT/HCPCS: 99212; 99214; G0463

== ENCOUNTER 2024-03-05 09:52 | Emergency (ER) | payer OTHER, SELFPAY ==
[2024-03-05 10:00] VITALS: BP 121/75; PULSE 95; RESP 18; TEMP 37.1; O2SAT 99; BMI 35.2
--- NOTE | 2024-03-05 10:04 | EXP.UTC ---
Discharge Plan Disposition Patient Disposition: Home, Self-Care Condition: Good Prescriptions Prescriptions: New amoxicillin 875 mg tablet 875 mg PO Q12H Qty: 20 0RF ciprofloxacin HCl 0.3 % drops See Rx Instructions .ROUTE .COMPLEX Qty: 5 0RF Rx Instructions: put 1 drp in left eye every 2hr x2days; then 4 times/day x5days prednisone 10 mg tablet 10 mg PO BID 3 Days Qty: 6 0RF No Action bisoprolol fumarate 5 mg tablet 5 mg PO DAILY Qty: 90 3RF venlafaxine 150 mg capsule,extended release 24hr 150 mg PO DAILY Rx Instructions: TAKE 1 CAPSULE BY MOUTH DAILY FOR ANXIETY Vraylar 1.5 mg capsule 1.5 mg PO DAILY Rx Instructions: TAKE 1 CAPSULE BY MOUTH DAILY FOR ANXIETY polymyxin B sulf-trimethoprim 10,000 unit- 1 mg/mL drops 1 drp Eye-Left Q3H 7 Days Qty: 10 0RF Rx Instructions: while awake; do not exceed 6 doses in 24 hours Referrals Follow up/Referrals: Scar Gonzalez MD [Primary Care Provider] - See instructions Activity Restrictions/Add. Instructions Additional Instructions/Restrictions: Drink plenty of fluids. Take tylenol or ibuprofen for pain or fever. Take the medications as directed. Stop the eye drops that you have been using and start the new one. Follow up with your regular doctor. GO TO THE ER FOR ANY WORSENING SYMPTOMS If you are not doing better within the next 48 hours please call your eye doctor and get in to be seen there. Clinical Impressions Clinical Impression: Conjunctivitis of left eye, Sinusitis Instructions Patient Instructions: How to Instill Eye Drops, DI for Sinusitis Discharge ED Provider: Sean Barker [facility] General Stated complaint: pain and tightness on L side of face under eye Time Seen by Provider: 03/05/24 10:04 History of Present Illness Provider Complaint: She is back with left eye irritation today. She was here 4 days ago with this eye complaint. She denies any changes in her vision. She states that she is having pressure in the sinus below that eye now. She denies any fever. She denies eye pain. Related Data Home Medications Medication Instructions Recorded Confirmed cariprazine 1.5 mg capsule 1.5 mg PO DAILY 11/15/23 03/05/24 (Vraylar) venlafaxine 150 mg 150 mg PO DAILY 11/15/23 03/05/24 capsule,extended release 24 hr Previous Rx's Medication Instructions Recorded bisoprolol fumarate 5 mg tablet 5 mg PO DAILY #90 tabs 10/21/23 polymyxin B sulfate 10,000 1 drp Eye-Left Q3H 7 days #10 mL 03/01/24 unit-trimethoprim 1 mg/mL eye drops amoxicillin 875 mg tablet 875 mg PO Q12H #20 tabs 03/05/24 ciprofloxacin HCl 0.3 % eye drops See Rx Instructions ophthalmic 03/05/24 (eye) .COMPLEX #5 mL prednisone 10 mg tablet 10 mg PO BID 3 days #6 tabs 03/05/24 Allergies Allergy/AdvReac Type Severity Reaction Status Date / Time No Known Allergies Allergy Verified 03/05/24 10:14 [facility] Disclaimer: The information contained in this section may have been updated after the patient was seen, as this information can be updated by other users. 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 Generalized anxiety disorder Major depressive disorder Surgical History History of tonsillectomy Family History Mother FHx: mental illness depression; anxiety; completed suicide in 2011 by hanging Social History Smoking Status: Current every day smoker tobacco type: e-cigarettes quit status: considering quitting second hand exposure: No alcohol intake: never substance use type: denies use current occupational status: employed and other Travel in the last 8 weeks: None adopted: No caregiver/support person: No foster care: No household members: family housing: house marital status: single number of children: 0 education level: college 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[employer]; 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 additional complaints except as documented Constitutional Constitutional: Denies chills and Denies fever(s) Eyes Eyes: Reports as per HPI and Reports eye discharge ENT Ears, Nose, Mouth, and Throat: Reports as per HPI, Denies dizziness, Denies otalgia, Reports nasal congestion, Reports sinus pressure and Denies sore throat Cardiovascular Cardiovascular: Denies chest pain Respiratory Respiratory: Denies shortness of breath, Denies chest congestion, Reports cough, Denies stridor and Denies wheezing Gastrointestinal Gastrointestingal: Denies nausea or vomiting Musculoskeletal Musculoskeletal: Reports system reviewed and no additional complaints, except as documented and Denies arthralgias Integumentary/Breasts Skin/Breast: Denies rash Neurologic Neurologic: Denies dizziness and Denies paresthesias Allergic/Immunologic Allergic/Immunologic: Denies wheezing Physical Exam General General appearance: alert and in no apparent distress Head Head exam: atraumatic, normocephalic and normal inspection Eye Eye exam: Present normal appearance, PERRL and EOMI ENT ENT exam: Present normal oropharynx, mucous membranes moist, TM's normal bilaterally and normal external ear exam Expanded ENT Exam TM/Canal exam: Left TM: erythema Nose exam: Absent sinus tenderness Nasal speculum exam: Bilateral: normal Mouth exam: Present normal external inspection; Absent drooling Teeth exam: Present normal inspection Throat exam: Present tonsillar erythema Neck Neck exam: Present normal inspection, full ROM and trachea midline; Absent meningismus or lymphadenopathy Chest Chest inspection: Present normal inspection and symmetric chest wall rise; Absent tenderness Respiratory Respiratory exam: Present normal lung sounds bilaterally; Absent respiratory distress Cardiovascular Cardiovascular exam: Present regular rate and normal rhythm; Absent JVD Abdominal Exam Abdominal exam: Present soft and normal bowel sounds; Absent distention, tenderness or guarding Extremities Exam Extremities exam: Present normal inspection, full ROM and normal capillary refill; Absent calf tenderness Back Exam Back exam: Present normal inspection; Absent tenderness Neurological Exam Neurological exam: Present alert and oriented X3 Psychiatric Psychiatric exam: Present normal affect and normal mood Skin Skin exam: Present warm, dry, intact and normal color Lymphatic Lymphatic Findings: no adenopathy Medical Decision Making Medical Records Medical records reviewed: No I reviewed the patient's medical records. Cade Inquiry Pt receiving controlled substance: No
[2024-03-05 11:02] VITALS: BP 121/75; PULSE 95; RESP 18; TEMP 37.1; O2SAT 99
== END 2024-03-05 11:02 | disposition home or self-care (01) ==
PROVIDERS: Emergency Provider Nurse Practitioner Family; PCP Family Medicine
DX: H10.32 Unspecified acute conjunctivitis, left eye (principal); J01.90 Acute sinusitis, unspecified; R09.81 Nasal congestion; F17.290 Nicotine dependence, other tobacco product, uncomplicated
CPT/HCPCS: 99212; 99214; G0463

== ENCOUNTER 2024-03-26 14:16 | Emergency (ER) | payer OTHER, SELFPAY ==
--- NOTE | 2024-03-26 14:24 | XR_ITS ---
FINAL REPORT CLINICAL HISTORY: pain COMPARISON: None FINDINGS: Three views of the left knee reveal no evidence of fracture or dislocation. The bony alignment is normal. The joint spaces are preserved. There is no evidence of joint effusion. No localized soft tissue abnormality is seen. IMPRESSION: No acute abnormality identified. Reviewed, Interpreted and Dictated by Juan Britton III, MD Transcribed by Patricia Pritchard Authenticated and [facility]
[2024-03-26 14:25] VITALS: BP 146/95; PULSE 117; RESP 20; TEMP 36.6; O2SAT 98; BMI 35.2
--- NOTE | 2024-03-26 14:36 | ED_ITS ---
Discharge Plan Disposition Patient Disposition: Home, Self-Care Condition: Good Referrals Follow up/Referrals: Scar Gonzalez MD [Primary Care Provider] - See instructions Fernando Patricia DO [Staff Physician] - See instructions Activity Restrictions/Add. Instructions Additional Instructions/Restrictions: *weight bearing as tolerated *RICE, Rest the extremity, Ice 15-20 minutes 3-4 times daily, Compress- wear the jhonathan wrap as discussed as much as possible to help reduce swelling and pain, Elevate the extremity when at rest *Jhonathan wrap is for support and help control swelling, use it except in the shower. Be sure that is not to tight but not to loose either *Elevate when resting? *Ibuprofen 600-800mg every 6-8 hours as needed for pain an inflammation. If need something more can take Tylenol in between doses of Ibuprofen to help Immediately follow up with your family doctor for new or worsening of symptoms, or no noticeable improvement over the next 3-5 days Clinical Impressions Clinical Impression: Knee pain Qualifiers: Chronicity: unspecified Laterality: left Qualified Code(s): M25.562 - Pain in left knee Stand Alone Forms Stand Alone Forms: Work/School Release Instructions Patient Instructions: How To Perform RICE (Rest, Ice, Compress, Elevate), Ibuprofen Discharge ED Provider: Flor Lopez [facility] General Stated complaint: L knee pain Mode of Arrival: Ambulatory Source of Information: Patient Limitations: No Limitations Time Seen by Provider: 03/26/24 14:36 Description of Symptoms (Recalled from Triage Doc. by RN): PATIENT C/O LEFT KNEE PAIN THAT STARTED YESTERDAY. NO KNOWN INJURY HEENT Symptoms (Recalled from RN notes): No Resp Symptoms (Recalled from RN notes): No Skin Symptoms (Recalled from RN notes): No MS Symptoms (Recalled from RN notes): Yes Functional Status (Recalled from RN notes): WNL History of Present Illness Provider Complaint: Patient states that she walks alot at work and not sure if she may have twisted it or something but doesnt recall doing anything but the pain is more behind her knee and on the side and hurts when she puts weight on it Related Data Allergies Allergy/AdvReac Type Severity Reaction Status Date / Time No Known Allergies Allergy Verified 03/05/24 10:14 Worker's Comp Is this a Worker's Comp case?: No PFSH PFSH Disclaimer: The information contained in this section may have been updated after the patient was seen, as this information can be updated by other users. 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 Generalized anxiety disorder Major depressive disorder Surgical History History of tonsillectomy Family History Mother FHx: mental illness depression; anxiety; completed suicide in 2012 by hanging Social History Smoking Status: Current every day smoker tobacco type: e-cigarettes quit status: considering quitting second hand exposure: No alcohol intake: never substance use type: denies use current occupational status: employed and other Travel in the last 8 weeks: None adopted: No caregiver/support person: No foster care: No household members: family housing: house marital status: single number of children: 0 education level: college 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[employer]; 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 additional complaints except as documented and Yes Systems reviewed as appropriate & no additional complaints except as documented ENT Ears, Nose, Mouth, and Throat: Reports system reviewed and no additional complaints, except as documented and Reports as per HPI Cardiovascular Cardiovascular: Reports system reviewed and no additional complaints, except as documented and Reports as per HPI Respiratory Respiratory: Reports system reviewed and no additional complaints, except as documented and Reports as per HPI Musculoskeletal Musculoskeletal: Reports system reviewed and no additional complaints, except as documented and Reports as per HPI Comments: Pain in left knee more so behind and on the side of her knee Physical Exam General General appearance: alert and in no apparent distress Respiratory Respiratory exam: Present normal lung sounds bilaterally; Absent respiratory distress or wheezes Cardiovascular Cardiovascular exam: Present regular rate, normal rhythm and normal heart sounds Expanded Lower Extremity Exam Left: Knee exam: Present tenderness and swelling (mild); Absent laceration, deformity, dislocation, erythema or effusion Lower leg exam: Present normal inspection Neurological Exam Neurological exam: Present alert and oriented X3 Medical Decision Making Cade Inquiry Pt receiving controlled substance: No Cade was queried for this patient: No Vital Signs: 03/26/24 14:25 Temperature 97.9 F Temperature Source Oral Pulse Rate [Left Brachial] 117 H Respiratory Rate 20 Blood Pressure [Left Arm] 146/95 H Blood Pressure Mean [Left Arm] 112 Blood Pressure Source [Left Arm] Automatic Cuff Blood Pressure Position [Left Arm] Sitting 02 Sat by Pulse Oximetry 98 Oxygen Delivery Method Room Air Orders (Tests/Meds): ORDERS Category Date Time Status Knee XR left 3 views [XR knee LT 3V] Stat Exams 03/26/24 14:24 Ordered Radiology Data #1: Image(s): Knee Image Reviewed: Yes I have reviewed radiologist's interpretation IMPRESSION: No acute abnormality identified.
[2024-03-26 15:42] VITALS: BP 146/95; PULSE 117; RESP 20; TEMP 36.6; O2SAT 98
== END 2024-03-26 15:50 | disposition home or self-care (01) ==
PROVIDERS: Emergency Provider Nurse Practitioner; PCP Family Medicine
DX: M25.562 Pain in left knee (principal)
CPT/HCPCS: 73562; 99212; 99213; G0463

== ENCOUNTER 2024-06-26 13:19 | Emergency (ER) | payer OTHER, SELFPAY ==
[2024-06-26 13:30] VITALS: BP 136/88; PULSE 87; RESP 16; TEMP 37.1; O2SAT 98; BMI 35.3
--- NOTE | 2024-06-26 13:33 | ED_ITS ---
Discharge Plan Disposition Patient Disposition: Home, Self-Care Condition: Good Prescriptions Prescriptions: New ondansetron 4 mg tablet,disintegrating 4 mg PO Q8H PRN (Reason: nausea and vomiting) Qty: 10 0RF Referrals Follow up/Referrals: Scar Gonzalez MD [Primary Care Provider] - See instructions Activity Restrictions/Add. Instructions Additional Instructions/Restrictions: Drink extra fluids with and between meals. If you have difficulty drinking, try very small amounts of water or suck on ice chips. ? Avoid fruit juices, as these do not replace minerals and can actually increase diarrhea. ? Children and adults can use sports drinks to replenish electrolytes. Younger children and infants should use products formulated for children, like oral rehydration solutions. ? Eat food in small amounts and let your stomach recover. ? Get lots of rest. You may feel tired or weak. ? No greasy or fried foods for the next 24-48 hours BRAT diet Bananas Rice Apples and [place] ? Make sure to drink plenty of liquids ? Return if needed ? Straight to ER if any life threatening symptoms ? Zofran as prescribed ? You was given an outpatient order for diarrhea panel, please collect specimen and bring back to outpatient lab then call back to the [facility] or follow up with family doctor for results ? Follow up with family doctor in the next 48-72 hours if no improvement or any worsening of symptoms Clinical Impressions Clinical Impression: Nausea vomiting and diarrhea Stand Alone Forms Stand Alone Forms: Work/School Release Instructions Patient Instructions: Nausea and Vomiting-Adult, Diarrhea Print Language Print Language: Romansh Discharge ED Provider: [place] [facility] [place] General Stated complaint: nausea, vomiting Mode of Arrival: Ambulatory Source of Information: Patient Limitations: No Limitations Time Seen by Provider: 06/26/24 13:33 Description of Symptoms (Recalled from Triage Doc. by RN): Complaint of N/D/V since yesterday morning. 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 Generalized anxiety disorder Major depressive disorder Surgical History History of tonsillectomy Family History Mother FHx: mental illness depression; anxiety; completed suicide in 2011 by hanging Social History Smoking Status: Current every day smoker tobacco type: e-cigarettes quit status: considering quitting second hand exposure: No alcohol intake: never substance use type: denies use current occupational status: employed and other Travel in the last 8 weeks: None adopted: No caregiver/support person: No foster care: No household members: family housing: house marital status: single number of children: 0 education level: college 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[employer]; 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nstitutional Constitutional: Reports system reviewed and no additional complaints, except as documented, Reports as per HPI, Denies body ache, Denies chills, Denies fever(s) and Denies headache(s) ENT Ears, Nose, Mouth, and Throat: Reports system reviewed and no additional complaints, except as documented, Reports as per HPI and Denies headache(s) Cardiovascular Cardiovascular: Reports system reviewed and no additional complaints, except as documented and Reports as per HPI Respiratory Respiratory: Reports system reviewed and no additional complaints, except as documented and Reports as per HPI Gastrointestinal Gastrointestingal: Reports system reviewed and no additional complaints, except as documented, as per HPI, diarrhea, nausea and vomiting; Denies abdominal pain Neurologic Neurologic: Denies headache(s) Physical Exam General General appearance: alert and in no apparent distress ENT ENT exam: Present mucous membranes moist Respiratory Respiratory exam: Present normal lung sounds bilaterally; Absent respiratory distress or wheezes Cardiovascular Cardiovascular exam: Present regular rate and normal heart sounds; Absent normal rhythm or bradycardia Abdominal Exam Abdominal exam: Present soft and normal bowel sounds; Absent distention, tenderness, guarding or rebound Neurological Exam Neurological exam: Present alert, oriented X3 and normal gait Medical Decision Making Cade Inquiry Pt receiving controlled substance: No Cade was queried for this patient: No Vital Signs: 06/26/24 13:30 Temperature 98.8 F Temperature Source Oral Pulse Rate [Radial] 87 Respiratory Rate 16 Blood Pressure [Right Arm] 136/88 Blood Pressure Mean [Right Arm] 104 Blood Pressure Source [Right Arm] Automatic Cuff Blood Pressure Position [Right Arm] Sitting 02 Sat by Pulse Oximetry 98 Oxygen Delivery Method Room Air Medical Decision Narrative: denes states on period now
[2024-06-26 13:49] VITALS: BP 136/88; PULSE 87; RESP 16; TEMP 37.1; O2SAT 98
== END 2024-06-26 13:50 | disposition home or self-care (01) ==
PROVIDERS: Emergency Provider Nurse Practitioner; PCP Family Medicine
DX: R11.2 Nausea with vomiting, unspecified (principal); R19.7 Diarrhea, unspecified
CPT/HCPCS: 99212; 99214; G0463

== ENCOUNTER 2024-07-05 12:12 | Emergency (ER) | payer OTHER, SELFPAY ==
--- NOTE | 2024-07-05 12:53 | EXP.UTC ---
Discharge Plan Disposition Patient Disposition: Home, Self-Care Condition: Good Prescriptions Prescriptions: New amoxicillin 875 mg tablet 875 mg PO Q12H Qty: 20 0RF methylprednisolone 4 mg Tablets,Dose Pack 4 mg PO DIRECTED 6 Days Qty: 21 0RF Rx Instructions: Take 1 pack as directed for 6 days ciprofloxacin-dexamethasone 0.3-0.1 % Drops,Suspension 2 drp Ear-Left BID 7 Days Qty: 1 0RF Referrals Follow up/Referrals: Scar Gonzalez MD [Primary Care Provider] - See instructions Activity Restrictions/Add. Instructions Additional Instructions/Restrictions: Drink plenty of fluids. Take tylenol or ibuprofen for pain or fever. Take the medications as directed. Follow up with your regular doctor. GO TO THE ER FOR ANY WORSENING SYMPTOMS Clinical Impressions Clinical Impression: Otitis media Stand Alone Forms Stand Alone Forms: Work/School Release Instructions Patient Instructions: How to Instill Ear Drops, Middle Ear Infection Print Language Print Language: Swedish Discharge ED Provider: Sean Barker [facility] [place] General Stated complaint: left ear pain Time Seen by Provider: 07/05/24 12:52 History of Present Illness Provider Complaint: She states that for the past 5 days she has had left ear pain and discharge. Related Data Previous Rx's ?Medication ?Instructions ?Recorded amoxicillin 875 mg tablet 875 mg PO Q12H #20 tabs 07/05/24 ciprofloxacin 0.3 %-dexamethasone 2 drp Ear-Left BID 7 days #1 ea 07/05/24 0.1 % ear drops,suspension methylprednisolone 4 mg tablets in 4 mg PO DIRECTED 6 days #21 tabs 07/05/24 a dose pack Allergies Allergy/AdvReac Type Severity Reaction Status Date / Time No Known Allergies Allergy Verified 03/05/24 10:14 [facility] Disclaimer: The information contained in this section may have been updated after the patient was seen, as this information can be updated by other users. 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 Generalized anxiety disorder Major depressive disorder Surgical History History of tonsillectomy Family History Mother FHx: mental illness depression; anxiety; completed suicide in 2011 by hanging Social History Smoking Status: Current every day smoker tobacco type: e-cigarettes quit status: considering quitting second hand exposure: No alcohol intake: never substance use type: denies use current occupational status: employed and other Travel in the last 8 weeks: None adopted: No caregiver/support person: No foster care: No household members: family housing: house marital status: single number of children: 0 education level: college 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[employer]; 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 additional complaints except as documented Constitutional Constitutional: Denies chills, Reports fever(s) and Reports poor appetite Eyes Eyes: Denies eye discharge ENT Ears, Nose, Mouth, and Throat: Denies ear discharge, Reports otalgia, Denies hearing loss, Denies sinus pain and Reports sore throat Cardiovascular Cardiovascular: Denies chest pain and Denies dyspnea Respiratory Respiratory: Denies chest congestion, Reports cough and Denies dyspnea Gastrointestinal Gastrointestingal: Denies abdominal pain, diarrhea, nausea or vomiting Musculoskeletal Musculoskeletal: Denies arthralgias Integumentary/Breasts Skin/Breast: Denies rash Physical Exam General General appearance: alert and in no apparent distress Head Head exam: atraumatic, normocephalic and normal inspection Eye Eye exam: Present normal appearance; Absent PERRL or EOMI ENT ENT exam: Present mucous membranes moist and normal external ear exam Expanded ENT Exam TM/Canal exam: Bilateral
[2024-07-05 12:56] VITALS: BP 144/93; PULSE 86; RESP 16; TEMP 36.9; O2SAT 98; BMI 33.5
[2024-07-05 13:25] VITALS: BP 144/93; PULSE 86; RESP 16; TEMP 36.9; O2SAT 98
== END 2024-07-05 13:26 | disposition home or self-care (01) ==
PROVIDERS: Emergency Provider Nurse Practitioner Family; PCP Family Medicine
DX: H66.92 Otitis media, unspecified, left ear (principal); H92.02 Otalgia, left ear
CPT/HCPCS: 99212; 99214; G0463

== ENCOUNTER 2024-12-05 11:08 | Emergency (ER) | payer OTHER, SELFPAY ==
[2024-12-05 11:18] VITALS: BP 149/97; PULSE 94; RESP 18; TEMP 37; O2SAT 98; BMI 34.0
--- NOTE | 2024-12-05 11:21 | ED_ITS ---
Discharge Plan Disposition Patient Disposition: Home, Self-Care Condition: Good Prescriptions Prescriptions: New yjujhrlq-tfrxqynht-ZT 3.5-10,000-1 mg/mL-unit/mL-% solution 4 drp otic (ear) TID 7 Days Qty: 10 0RF Referrals Follow up/Referrals: Scar Gonzalez MD [Primary Care Provider] - See instructions Activity Restrictions/Add. Instructions Additional Instructions/Restrictions: Ear drops as ordered Tylenol ibuprofen as needed for pain If symptoms worsen or do not improve return Follow-up primary care this week if needed Clinical Impressions Clinical Impression: Otitis externa Instructions Patient Instructions: DI for Otitis Externa Print Language Print Language: Sami Discharge ED [facility] General Stated complaint: Pain in L ear Mode of Arrival: Ambulatory Source of Information: Patient Time Seen by Provider: 12/05/24 11:21 Description of Symptoms (Recalled from Triage Doc. by RN): LEFT EAR PAIN X2DAYS HEENT Symptoms (Recalled from RN notes): Yes Resp Symptoms (Recalled from RN notes): No Skin Symptoms (Recalled from RN notes): No MS Symptoms (Recalled from RN notes): No Functional Status (Recalled from RN notes): WNL History of Present Illness Provider Complaint: 24-year-old female presents for left ear pain. Related Data Previous Rx's ?Medication ?Instructions ?Recorded jrwpoccy-bofsqtojx-ulcexkkmu 3.5 4 drp otic (ear) TID 7 days #10 mL 12/05/24 mg/mL-10,000 unit/mL-1 % ear solution Allergies Allergy/AdvReac Type Severity Reaction Status Date / Time No Known Allergies Allergy Verified 03/05/24 10:14 Worker's Comp Is this a Worker's Comp case?: No [facility] Disclaimer: The information contained in this section may have been updated after the moy villar was seen, as this information can be updated by other users. 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) Smoking Status: Current every day smoker tobacco type: e-cigarettes quit status: considering quitting second hand exposure: No alcohol intake: never substance use type: denies use current occupational status: employed and other Travel in the last 8 weeks: None adopted: No caregiver/support person: No foster care: No household members: family housing: house marital status: single number of children: 0 education level: college 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[employer]; 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 Have you lived/traveled outside US in past 30 days?: No Contact w/someone who lives/traveled outside US past 30 days?: No Exposure to someone with infectious disease in past 14 days?: No Do you have a fever (greater than 100.4 F or 38 C)?: No Have you tested positive for COVID-19: No Exposed to someone with COVID-19 in past 14 days?: No Do you have a sore throat?: No Do you have a cough?: No Do you have any weakness?: No Do you have any diarrhea?: No Are you experiencing any unusual bleeding?: No Do you have any muscle aches/pain?: No Do you have any abdominal pain?: No Are you experiencing loss of taste or smell?: No ROS Obtained: Yes Systems reviewed as appropriate & no additional complaints except as documented ENT Ears, Nose, Mouth, and Throat: Reports system reviewed and no additional complaints, except as documented, Reports as per HPI and Reports otalgia Physical Exam General General appearance: alert and in no apparent distress Eye Eye exam: Present normal appearance ENT ENT exam: Present normal oropharynx and mucous membranes moist Expanded ENT Exam TM/Canal exam: Left TM: erythema and canal tenderness (Canal red) Respiratory Respiratory exam: Present normal lung sounds bilaterally Cardiovascular Cardiovascular exam: Present regular rate and normal rhythm Neurological Exam Neurological exam: Present alert and oriented X3 Skin Skin exam: Present warm and intact Medical Decision Making Medical Records Medical records reviewed: Yes I reviewed the patient's medical records. Screening: Per USPSTF and CDC recommendations, given the prevalence of disease in our region, it is our hospital?s policy to screen for HIV and viral Hepatitis for all patients aged 18 and over and those with ongoing risk factors. Cade Inquiry Pt receiving controlled substance: No Vital Signs: 12/05/24 11:18 Temperature 98.6 F Temperature Source Oral Pulse Rate [Left Radial] 94 H Respiratory Rate 18 Blood Pressure [Left Arm] 149/97 H Blood Pressure Mean [Left Arm] 114 02 Sat by Pulse Oximetry 98
[2024-12-05 11:28] VITALS: BP 149/97; PULSE 94; RESP 18; TEMP 37
== END 2024-12-05 11:30 | disposition home or self-care (01) ==
PROVIDERS: Emergency Provider Nurse Practitioner Family; PCP Family Medicine
DX: H60.92 Unspecified otitis externa, left ear (principal)
CPT/HCPCS: 99212; G0381

== ENCOUNTER 2024-12-16 10:27 | Emergency (ER) | payer OTHER, SELFPAY ==
[2024-12-16 11:35] VITALS: BP 113/73; PULSE 91; RESP 18; TEMP 37.2; O2SAT 99; BMI 33.8
--- NOTE | 2024-12-16 11:49 | ED_ITS ---
Discharge Plan Disposition Patient Disposition: Home, Self-Care Condition: Good Prescriptions Prescriptions: New amoxicillin 875 mg tablet 875 mg PO Q12H Qty: 20 0RF benzonatate 100 mg capsule 100 mg PO TID PRN (Reason: cough) Qty: 30 0RF No Action ondansetron HCl 8 mg tablet 8 mg PO Q8HP PRN (Reason: Nausea And Vomiting) Patient Comments: TAKE 1 TABLET BY MOUTH EVERY 8 HOURS NEEDED FOR NAUSEA FOR VOMITING norethindrone-e.estradiol-iron [Lachelle Fe 11/30 (28)] 1 mg-20 mcg (21)/75 mg (7) tablet 1 tab PO DAILY Patient Comments: TAKE 1 TABLET BY MOUTH ONCE DAILY Referrals Follow up/Referrals: Scar Gonzalez MD [Primary Care Provider] - See instructions Activity Restrictions/Add. Instructions Additional Instructions/Restrictions: *Monitor Temp, Over the counter Motrin or Tylenol as directed/as needed Tylenol every 4 hours and Motrin every 6 hours (as long as your family doctor has told you that you can take it) for fever or pain. and straight to ER if unable to lower temp less than 101.0 after medication given *Warm salt water gargles may help to soothe the throat *Throat Lozenges? *Warm fluids like tea with honey may help to soothe the throat? *Sleep elevated *Humidifier/Vaporizer Your throat swab was sent for culture. Those results are typically sent to your primary care. Be sure to follow up in 2-3 days with your family doctor/primary care physician if no improvement so they can review those result and treat if necessary. If you don?t have a primary care doctor, I recommend you get one but in the mean time, you will have to return to a walk in clinic Follow up IMMEDIATELY for new or worsening symptoms or no Noticeable improvement over the next 48-72 hours. 911 for difficulty breathing or swallowing Clinical Impressions Clinical Impression: Otitis media Instructions Patient Instructions: Middle Ear Infection, Amoxicillin Print Language Print Language: Syriac Discharge ED Provider: Flor Lopez [facility] General Stated complaint: sore throat cough Mode of Arrival: Ambulatory Source of Information: Patient Limitations: No Limitations Time Seen by Provider: 12/16/24 11:50 Description of Symptoms (Recalled from Triage Doc. by RN): PATIENT C/O SORE THROAT AND COUGH X 2 DAYS HEENT Symptoms (Recalled from RN notes): Yes Resp Symptoms (Recalled from RN notes): Yes Skin Symptoms (Recalled from RN notes): No MS Symptoms (Recalled from RN notes): No Functional Status (Recalled from RN notes): WNL History of Present Illness Provider Complaint: Patient states that she has been having sore throat and cough for the last couple of days States she is currently on ear drops for ear infection in left but she is almost out of drops because she started using them in both ears because now she is having pain in right ear Related Data Home Medications ?Medication ?Instructions ?Recorded ?Confirmed norethindrone 1 mg-ethinyl 1 tab PO DAILY 12/16/24 12/16/24 estradiol 20 mcg (21)-iron 75 mg (7) tablet (Lachelle Fe 11/30 (28)) ondansetron HCl 8 mg tablet 8 mg PO Q8HP PRN Nausea And 12/16/24 12/16/24 Vomiting Previous Rx's ?Medication ?Instructions ?Recorded amoxicillin 875 mg tablet 875 mg PO Q12H #20 tabs 12/16/24 benzonatate 100 mg capsule 100 mg PO TID PRN cough #30 caps 12/16/24 Allergies Allergy/AdvReac Type Severity Reaction Status Date / Time No Known Allergies Allergy Verified 03/05/24 10:14 Worker's Comp Is this a Worker's Comp case?: No [facility] Dis[facility]: The information contained in this section may have been updated after the patient was seen, as this information can be updated by other users. 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) Smoking Status: Current every day smoker tobacco type: e-cigarettes quit status: considering quitting second hand exposure: No alcohol intake: never substance use type: denies use current occupational status: employed and other Travel in the last 8 weeks: None adopted: No caregiver/support person: No foster care: No household members: family housing: house marital status: single number of children: 0 education level: college 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[employer]; 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 Have you lived/traveled outside US in past 30 days?: No Contact w/someone who lives/traveled outside US past 30 days?: No Exposure to someone with infectious disease in past 14 days?: No Do you have a fever (greater than 100.4 F or 38 C)?: No Have you tested positive for COVID-19: No Exposed to someone with COVID-19 in past 14 days?: No Do you have a sore throat?: Yes Do you have a cough?: No Do you have any weakness?: No Do you have any diarrhea?: No Are you experiencing any unusual bleeding?: No Do you have any muscle aches/pain?: No Do you have any abdominal pain?: No Are you experiencing loss of taste or smell?: No ROS Obtained: Yes All systems reviewed & no additional complaints except as documented and Yes Systems reviewed as appropriate & no additional complaints except as documented Constitutional Constitutional: Reports system reviewed and no additional complaints, except as documented and Reports as per HPI Eyes Eyes: Reports system reviewed and no additional complaints, except as documented and Reports as per HPI ENT Ears, Nose, Mouth, and Throat: Reports system reviewed and no additional complai nts, except as documented, Reports as per HPI, Reports otalgia and Reports sore throat Cardiovascular Cardiovascular: Reports system reviewed and no additional complaints, except as documented and Reports as per HPI Respiratory Respiratory: Reports system reviewed and no additional complaints, except as documented and Reports as per HPI Gastrointestinal Gastrointestingal: Reports system reviewed and no additional complaints, except as documented and as per HPI Physical Exam General General appearance: alert and in no apparent distress ENT ENT exam: Present mucous membranes moist Expanded ENT Exam External ear exam: Absent pain with movement or external tenderness TM/Canal exam: Right TM: erythema and bulging Throat exam: Present other (Pharyngeal erythema noted ) Respiratory Respiratory exam: Present normal lung sounds bilaterally; Absent respiratory distress or wheezes Cardiovascular Cardiovascular exam: Present regular rate, normal rhythm and normal heart sounds Abdominal Exam Abdominal exam: Present soft and normal bowel sounds; Absent distention or tenderness Neurological Exam Neurological exam: Present alert, oriented X3 and normal gait Medical Decision Making Medical Records Screening: Per USPSTF and CDC recommendations, given the prevalence of disease in our region, it is our hospital?s policy to screen for HIV and viral Hepatitis for all patients aged 18 and over and those with ongoing risk factors. Cade Inquiry Pt receiving controlled substance: No Cade was queried for this patient: No Vital Signs: 12/16/24 11:35 Temperature 98.9 F Temperature Source Oral Pulse Rate [Left Brachial] 91 H Respiratory Rate 18 Blood Pressure [Left Arm] 113/73 Blood Pressure Mean [Left Arm] 86 Blood Pressure Source [Left Arm] Automatic Cuff Blood Pressure Position [Left Arm] Sitting 02 Sat by Pulse Oximetry 99 Oxygen Delivery Method Room Air Lab Data Lab results reviewed: Yes I reviewed the patient's lab results.
[2024-12-16 11:51] LABS: UTC Strep Screen (Rapid) Negative (Negative)
[2024-12-16 11:59] VITALS: BP 113/73; PULSE 91; RESP 18; TEMP 37.2; O2SAT 99
== END 2024-12-16 12:04 | disposition home or self-care (01) ==
PROVIDERS: Emergency Provider Nurse Practitioner; PCP Family Medicine
DX: H66.90 Otitis media, unspecified, unspecified ear (principal)
CPT/HCPCS: 87880; 99213; G0381

== ENCOUNTER 2025-06-12 12:44 | Outpatient (CLI) | payer OTHER, SELFPAY ==
--- NOTE | 2025-06-12 12:46 | XR_ITS ---
PROCEDURE INFORMATION: Exam: XR Left Ankle Exam date and time: 06/12/2025 12:51 PM Age: 24 years old Clinical indication: Pain; Ankle; Left; Additional info: Left ankle injury TECHNIQUE: Imaging protocol: Radiologic exam of the left ankle. Views: 3 or more views. COMPARISON: CR XR FOOT LT MIN 3V 06/12/2025 12:51 PM FINDINGS: Bones/joints: Normal. Soft tissues: Normal. IMPRESSION: No acute findings.
--- NOTE | 2025-06-12 12:46 | XR_ITS ---
PROCEDURE INFORMATION: Exam: XR Left Foot Exam date and time: 06/12/2025 12:51 PM Age: 24 years old Clinical indication: Pain; Foot; Left; Additional info: Left foot pain TECHNIQUE: Imaging protocol: Radiologic exam of the left foot. Views: 3 or more views. COMPARISON: CR XR ANKLE LT MIN 3V 06/12/2025 12:51 PM FINDINGS: Bones/joints: No acute fracture. No dislocation. Soft tissues: Normal. IMPRESSION: No acute findings.
--- OUTSIDE RECORDS SUMMARY | 2025-06-12 12:48 | XMS_ITS | Clinical Summary ---
[facility] Address [address] [id number] Care Team Providers Care Wood Casket Maker Name Role Phone Dony Gonzalez MD Primary Care Provider [phone] Allergies No known active allergies Medications norethindrone-et hinyl estradiol FE (11/30) 1-20 MG-MCG per tabletIndication s:Menorrhagia with irregular cycle,Dysmenorrh ea Take 1 tablet by mouth Daily. 84 tablet 3 12/08/2024 Active ondansetron (ZOFRAN) 8 MG tabletIndication s:Menorrhagia with irregular cycle,Dysmenorrh ea Take 1 tablet by mouth Every 8 (Eight) Hours As Needed for Nausea or Vomiting. 30 tablet 12/08/2024 Active Active Problems No known active problems Family History 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 Relation Name Comments Lung cancer Father Stroke Paternal Grandfather Relation Name Status Comments Father Paternal Grandfather Social History Tobacco Use Types Packs/Day Years Used Date Smoking Tobacco: Never Passive Smoke Exposure: Never Smokeless Tobacco: Never Tobacco Cessation:Counseling Given: No Alcohol Use Standard Drinks/Week Comments Never 0 (1 standard drink = 0.6 oz pur e alcohol) Comments No Sex and Gender Information Value Date Recorded Sex Assigned at Not on file Legal Sex Female 12:38 PM EDT Gender Identity Not on file Sexual Orientation Not on file Last Filed Vital Signs Vital Sign Reading Time Taken Comments Blood Pressure 128/74 12/08/2024 2:48 PM EST Pulse - - Temperature - - Respiratory Rate - - Oxygen Saturation - - Inhaled Oxygen Concentration - - Weight 97.5 kg (215 lb) 12/08/2024 2:48 PM EST Height 167.6 cm (5' 6 ) 12/08/2024 2:48 PM EST Body Mass Index 34.7 12/08/2024 2:48 PM EST Plan of Treatment Health Maintenance Due Date Last Done Comments Annual Gynecologic Pelvic an d Breast Exam 2002 HPV VACCINES (1 - 3-dose series) 2017 MENINGOCOCCAL B VACCINE (1 o f 2 - Standard) 2018 PAP SMEAR 2023 TDAP/TD VACCINES (2 - Td or Tdap) 06/08/2024 06/08/2014 COVID-19 Vaccine (1 - 2023-2 5 season) 2024 ANNUAL PHYSICAL 2024 HEPATITIS C SCREENING 2024 INFLUENZA VACCINE 08/11/2025 12/02/2003, 10/21/2003 CHLAMYDIA SCREENING 10/02/2025 10/02/2024 Pneumococcal Vaccine 0-49 Aged Out 2002 No longer eligible based on patient's age to complete this topic MENINGOCOCCAL VACCINE Aged Out 06/08/2014 No kade dana eligible based on patient's age to complete this topic Procedures Procedure Name Priority Date/Time Associated Diagnosis Comments CHLAMYDIA TRACHOMATIS, NEISSERIA GONORRHOEAE, PCR W/ CONFIRMATION Routine 10/02/2024 8:56 AM EST Screening examination for STI from Last 3 Months or Most Recently Relevant to Health Maintenance Results * Chlamydia trachomatis, Neisseria gonorrhoeae, PCR w/ confirmation - , Urine, Clean Catch (10/02/2024 8:56 AM EST) Chlamydia trachomatis, LJ Negative Negative [facility] Neisseria gonorrhoeae, LJ Negative Negative [facility] Urine specimen obtained by clean catch procedure / Unknown 10/02/2024 8:56 AM EST 10/02/2024 Comment:UR Narrative [facility] ([facility]) - 10/05/2024 3:35 AM EST Performed at: 01 - [facility] [address] [id number] Search Marketing Coordinator: Jerome Ortiz MD, Phone: [phone] us Paola Hu MD MICROBIOLOGY - GENERAL ORDERABLE S Final Result [facility] ([facility]) [address] [place] [address], [facility] [address] [place] [address], from Last 3 Months or Most Recently Relevant to Health Maintenance Insurance Care Teams Wood Casket Maker Relationship Specialty Start Date End Date Dony Gonzalez MD [facility] [address] [place] [id number] PCP - General Family Medicine 11/19/24
--- OUTSIDE RECORDS SUMMARY | 2025-06-12 12:48 | XMS_ITS | Clinical Summary ---
Author Organization [facility] Address [address] [id number] Care Team Providers Care Roll Up Operator Name Role Phone Unavailable Primary Care Provider Unavailabl e Family History 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 Relation Name Comments Conversions - Other Father Healthy adult Conversions - Other Mother Healthy adult Relation Name Status Comments Father Mother Social History Tobacco Use Types Packs/Day Years Used Date Smoking Tobacco: Never Comments Unknown Sex and Gender Information Value Date Recorded Sex Assigned at Not on file Legal Sex Female 8:12 PM EDT Gender Identity Not on file Sexual Orientation Not on file Last Filed Vital Signs Vital Sign Reading Time Taken Comments Blood Pressure 135/90 04/16/2023 12:42 PM EDT Pulse 102 04/16/2023 12:42 PM EDT Temperature - - Respiratory Rate - - Oxygen Saturation - - Inhaled Oxygen Concentration - - Weight 97.1 kg (214 lb) 04/16/2023 12:42 PM EDT Height 167.6 cm (5' 6 ) 04/16/2023 12:42 PM EDT Body Mass Index 34.54 04/16/2023 12:42 PM EDT Plan of Treatment Health Maintenance Due Date Last Done Comments [facility]-Depression Screening 2002 [facility]-/Child/Adol SDOH Screenings 2002 HPV Vaccines (1 - 3-dose series) 2017 [facility]-Hepatitis A Vaccines (2 of 2 - 2-dose series) 11/26/2018 05/26/2018 [facility]- SDOH Screenings 2020 [facility]-Adult SDOH Screenings 2020 [facility]-Pap Smear 2023 [facility]-DTaP,Tdap,and Td Vaccines (7 - Td or Tdap) 06/08/2024 06/08/2014, 03/03/2008, 01/04/2004, Additional history exists [id number] Vaccine ( season) 2024 [facility]-Influenza Vaccine (#1) 2025 12/02/2003, [facility]-Zoster Vaccines (1 of 2) 2052 06/10/2014, 11/16/2003 [facility]-Hepatitis B Vaccines Completed 003, 2002, 2002 [facility]-HIB Vaccines Completed 11/16/2003, 08/2003, 02/04/2003, Additional history exists [facility]-IPV Vaccines Completed 03/03/2008, 04/2004, 02/04/2003, Additional history exists [facility]-Varicella Vaccines Completed 06/10/2014, 2003 [facility]-Pneumococcal Vaccine: Pediatrics (0 to 5 Years) and At-Risk Patients (6 to 49 Years) Aged Out No longer eligible based on patient's age to complete this topic [facility]-Rotavirus Vaccines Aged Out No lo nger eligible based on patient's age to complete this topic Insurance [address] [facility] [place] [id number] [employer]
== END 2025-06-12 23:59 | disposition home or self-care (01) ==
LOC: RAD 12:46
PROVIDERS: PCP Family Medicine; Visit Provider Nurse Practitioner Family
DX: M79.672 Pain in left foot (principal); M25.572 Pain in left ankle and joints of left foot
CPT/HCPCS: 73610; 73630

== ENCOUNTER 2025-11-06 09:29 | Outpatient (CLI) | payer OTHER, SELFPAY ==
[2025-11-06 20:11] LABS: Influenza A, PCR Not Detected (NotDetected); Influenza B, PCR Not Detected (NotDetected)
[2025-11-06 22:43] LABS: Coronavirus 19, PCR Detected (NotDetected)
--- OUTSIDE RECORDS SUMMARY | 2025-11-08 09:48 | XMS_ITS | Clinical Summary ---
Author Organization [facility] Address [address] [id number] Care Team Providers Care Seo Specialist Name Role Phone Unavailable Primary Care Provider [...] 06/08/2024 06/08/2014, 03/03/2008, 01/04/2004, Additional history exists [id number] Vaccine (2024- season) 2025 [facility]-Influenza Vaccine (#1) 2025 12/02/2003, [facility]-Zoster Vaccines [...] patient's age to complete this topic Insurance [employer]
--- OUTSIDE RECORDS SUMMARY | 2025-11-08 09:48 | XMS_ITS | Clinical Summary ---
[facility] Address [address] [phone] Care Team Providers Care Polisher Dial Name Role Phone Dony Gonzalez MD Primary Care Provider [phone] Allergies No known active allergies Medications norethindrone-et [...] (2 - Td or Tdap) 06/08/2024 06/08/2014 ANNUAL PHYSICAL 2024 HEPATITIS C SCREENING 2024 INFLUENZA VACCINE 06/11/2025 12/02/2003, 10/21/2003 CHLAMYDIA SCREENING 10/02/2025 10/02/2024 Pneumococcal [...] EST Performed at: 01 - [facility] [address] [id number] Monotypist: Jermoe Ortiz MD, Phone: [phone] us Paola Hu MD MICROBIOLOGY - GENERAL ORDERABLE S Final Result [facility] ([facility]) [address] [place] [address], [place] [phone] [facility] [address] [place] [address], [place] [phone] from Last 3 Months or Most Recently Relevant to Health Maintenance Insurance [facility] Care Teams Polisher Dial Relationship Specialty Start Date End Date Dony Gonzalez MD [address] [facility] [address] [place] [address] PCP - General Family Medicine 11/19/24
== END 2025-11-06 23:59 | disposition home or self-care (01) ==
LOC: LAB.DROPOF 11-08 09:30
PROVIDERS: PCP Family Medicine; Visit Provider Student in an Organized Health Care Education/Training Program
DX: R52 Pain, unspecified (principal)
CPT/HCPCS: 87636